=== PATIENT | male | born 1960 | race Caucasian/White ===

== ENCOUNTER 2019-01-03 10:53 | Inpatient (IN) ==
[2019-01-03 11:34] LABS: Basophils # (auto) 0.04 K/uL (0-0.2); Basophils % (auto) 0.8 %; Eosinophils # (auto) 0.09 K/uL (0-0.5); Eosinophils % (auto) 1.7 %; Hematocrit (blood only) 38.7 % (42-52); Hemoglobin 13.1 g/dL (14.0-18.0); Lymphocytes # (auto) 1.63 K/uL (1.2-3.4); Lymphocytes % (auto) 31.3 %; Mean Corpuscular Hemoglobin 30.5 pg (25-34); Mean Corpuscular Hgb Conc 33.9 g/dL (32-36); Mean Corpuscular Volume 90.2 fL (80-100); Mean Platelet Volume 10.5 fL (7.4-10.4); Monocytes # (auto) 0.51 K/uL (0.11-0.59); Monocytes % (auto) 9.8 %; Neutrophils # (auto) 2.94 K/uL (1.4-6.5); Neutrophils % (auto) 56.4 %; Platelet Count 266 K/uL (130-400); RDW Coefficient of Variation 13.4 % (11.5-14.5); Red Blood Count 4.29 M/uL (4.7-6.1); White Blood Count 5.21 K/uL (4.8-10.8)
[2019-01-03 11:56] LABS: Alanine Aminotransferase 20 U/L (12-78); Albumin Level 3.9 gm/dl (3.4-5.0); Aspartate Aminotransferase 11 U/L (15-37); BUN Creatinine Ratio 25.8 (10-20); Blood Urea Nitrogen 18 mg/dl (7-18); Calcium 8.5 mg/dl (8.5-10.1); Carbon Dioxide 26 mmol/L (21-32); Chloride 110 mmol/L (98-107); Est GFR (African American) 122.9; Glucose 108 mg/dl (70-99); Potassium 3.8 mmol/L (3.5-5.1); Sodium 140 mmol/L (136-145)
[2019-01-03 12:00] LABS: Acetaminophen < 2 ug/ml (10-30); Salicylate 2.7 mg/dl (2.8-20)
[2019-01-03 12:06] LABS: Albumin Globulin Ratio 1.3 (0.9-2); Alkaline Phosphatase 76 U/L (45-117); Bilirubin,Total 0.5 mg/dl (0.2-1); Total Protein 6.9 gm/dl (6.4-8.2)
[2019-01-03] MEDS ORDERED: IOVERSOL 100ml IV PRN (12:37)
[2019-01-03 12:42] LABS: Appearance Urine Clear (Clear); Bilirubin Urine Negative (Negative); Blood Urine Negative (Negative); Color Urine Yellow; Glucose Urine UA Negative (Negative); Ketones Urine Negative (Negative); Leukocyte Esterase Urine Negative (Negative); Nitrite Urine Negative (Negative); Protein Urine Negative (Negative); Urobilinogen Urine Negative (Negative); pH Urine 7.5 (4.5-7.5)
[2019-01-03 12:43] LABS: Sulfosalicylic Acid Urine Negative (Negative)
--- NOTE | 2019-01-03 12:47 | CT Scan Report ---
CT abd pelvis IV con only CT DOSE: 260.60 mGy.cm HISTORY: Weight loss abd pain, weight loss TECHNIQUE: Multiaxial CT images of the abdomen and pelvis were performed following the use of intrave nous contrast. A dose lowering technique was utilized adhering to the principles of ALARA. COMPARISON STUDY: 10/09/2008 FINDINGS: The lung bases are clear. The liver, spleen, gallbladder, pancreas, kidneys, and adrenal gl ands are within normal limits. No bowel wall thickening or obstruction. The pelvic organs are unremar kable. No suspicious lytic or blastic osseous lesions. IMPRESSION: No significant abnormality identified within the abdomen or pelvis. The above report was generated using voice recognition software. It may contain grammatical, syntax or spelling errors. Electronically signed by: Lai Chiu M.D. 01/03/2019 12:45 PM
[2019-01-03 13:09] LABS: Amphetamines+Metham, Urine Neg (Neg); Barbiturates, Urine Neg (Neg); Benzodiazepine, Urine Neg (Neg); Cocaine, Urine Neg (Neg); MDMA (Ecstacy), Urine Neg (Neg); Methadone, Urine Neg (Neg); Opiate, Urine Neg (Neg); Phencyclidine, Urine Neg (Neg)
[2019-01-03] MEDS ORDERED: PANTOprazole 40 MG TAB PO STA (13:34)
[2019-01-03] MEDS ORDERED: risperiDONE 1 MG TABLET PO STA (14:57)
--- NOTE | 2019-01-03 15:03 | Emergency Department Note ---
Entered by Rachell Garay acting as a scribe for Hemalatha Courtney MD History of Present Illness General Chief complaint: Mental Health Evaluation Source: patient and other (psych showcase maker) History of Present Illness Onset (ago): day(s) (yesterday) Location: head Pain Consistency: + other (episode) Maximum Pain Intensity: 6 Quality: + other (mental health) Exacerbated By: not by eating Associated symptoms: + other (SI, HI, abdominal pain, weight loss, irregular bowel movements); no nausea/vomiting (vomiting) The patient is a 58 year old male who presents to the Emergency Room for a mental health evaluation. Per the psych showcase maker, the patient called the police yesterday saying he was going to harm himself and others in some way. She states that today he went to a [employer] store and became irate because he felt that they owed him money, but they would not give him money. She reports that at this time the patient stormed out saying he was going home to get a machine gun to come back. She reports that after the incident the police were speaking with him on the phone and he just screamed the entire time. She states that he kept telling police my insides are bleeding and are in so much pain I want to . The psych showcase maker states that he was also telling police he was going to go drive his car on [address] and up onto the sidewalk to take out as many people as he could. She states that he was making statements of specifically killing Americans and that he wanted to end his life. The psych showcase maker states that when police arrived at his house he was screaming he didnt want to live and that they should shoot him. She reports that once he calmed down he told police that he had thought about killing himself last night to the point of hanging a rope over the rafter and holding it in his hand. She notes that on the way to the hospital he made note that he went to [facility] yesterday and bought black powder to build a bomb with. She states that he also told them he had every intention to kill himself. The patient states that 6 months ago he started noticing abdominal cramping across the center of his abdomen. He states that as time has gone on, it has gotten worse. He notes that the pain is like a pressure and bloating, similar to gas pains, but is always there. He reports that along with it he has noticed irregular bowel movements. He states that sometimes he has dark blood in his bowel movements, sometimes he has bright red blood in bowel movements, and other times he feels like he still needs to move his bowels right after moving them. The patient states that yesterday the pain was the worst it has ever been. He states that it was intolerable and almost came to the ED. He notes that by this morning it was back to the normal uncomfortable pressure again. He reports that along with the abdominal pain, he has lost 40 lbs. He notes that he has been eating, but he still has lost weight. The patient states that the pain was so bad that he did want to yesterday. He notes that he doesnt know what he said yesterday or today and doesnt remember, but doesnt say those things often. The patient notes that he is kicked out of placed frequently because he is supposedly rude and abrasive. He notes that he has been kicked out of the [employer], [employer], the coffee shop in [place], and [facility] [place]. The patient states that [facility] because after his first meeting with his new psychiatrist, he went for a follow up and was met with armed police who told him he was not welcome back at the facility. He reports that he was upset because he felt that their first session went well. He notes that he opened up to her and told her things he has told no one else. The patient states that since then he hasnt been able to see his PCP or her, her psychiatrist, there. He states that now he has to go to [place] for his appointments and has to check in with the police before going. He reports that notes that this is the reason he has not had his abdomen checked out yet. The patient notes that he "doesnt care" if he goes to [address] [place] [address]. He states that while there he "feels safe and doesnt feel like (his) life is in danger." He notes that he also likes it because he feels like he "has someone to talk to." The patient denies vomiting and abdominal pain after eating. Home Medications Home Medications Medication Instructions Recorded Confirmed Type No Known Home Medications 01/03/19 01/03/19 History Allergies Allergy/AdvReac Type Severity Reaction Status Date / Time bee venom protein (honey bee) Allergy Severe Anaphylaxis Verified 01/03/19 11:51 Past Med/Surg History Medical History Drug abuse Alcohol abuse Suicidal ideation Anxiety (Acute) Bipolar depression manic phase (Acute) Bipolar disorder (Acute) Mixed bipolar I disorder (Acute 10/25/10) Abdominal pain Cervical stenosis of spine Knee pain, bilateral Surgical History No pertinent past surgical history History of appendectomy Family History Father Cervical stenosis of spine Family/Other Diabetes Other No pertinent family history Social History Preferred Language: Macedonian Communication Ability: Effective Visual Impairment: No Limitations Hearing Ability: Normal Segment Assembler Required: No Beliefs That Will Affect Care: None Feels Safe at Home: Declines to Answer Smoking Status: Current every day smoker Tobacco Type: cigarettes ; Hx Alcohol Use: Yes Hx Substance Use: Yes Review of Systems See HPI for pertinent positives & negatives. and A total of 10 systems reviewed and were otherwise negative Physical Exam Vital Signs Vital Signs - 24 hr 01/03/19 10:58 01/03/19 12:47 Temperature 36.8 C Temperature Source Oral Sepsis Recent Fever Within 48 Hours No Sepsis New/Unexplained Change in Mental Status No Sepsis Action Taken by Nursing No Action Required Pulse Rate 74 Pulse Rate [Apical] 66 Respiratory Rate 22 16 Respiratory Effort / Characteristics Non-Labored Non-Labored Respiratory Depth Normal Normal Respiratory Pattern Regular Blood Pressure 123/71 Blood Pressure [Right Arm] 124/77 Blood Pressure Mean 88 Blood Pressure Mean [Right Arm] 92 Blood Pressure Position Sitting Blood Pressure Position [Right Arm] Standing Pulse Oximetry 100 100 Oxygen Delivery Method Room Air Room Air Vital signs reviewed. General: Well-appearing, agitated, in no significant distress. HEENT: No scleral icterus, PERRLA, neck supple. Atraumatic. Cardiovascular: Regular rate and rhythm, no extra sounds. Pulmonary: Clear to auscultation bilaterally, normal work of breathing. Abdomen: Soft, thin, nontender, nondistended, positive bowel sounds. Musculoskeletal: Atraumatic, no peripheral edema. Neurologic: Patient awake alert and oriented x 3 Skin: Warm, dry, no rash Psych: Pressure speech. Positive SI and HI. Course 1152: Past medical records reviewed. The patient was evaluated in room A8. A complete history and physical exam was performed. 1341: The patient was medically cleared at this time. 1458: I signed the patient's 302 at this time. 1644: The patient was accepted to [address] [place] [address] at this time. Administered Medications Folic Acid (Folvite) 1 mg PO QAM [facility] Stop: 02/03/19 08:59 Last Admin: 01/06/19 09:25 Dose: 1 mg Documented by: [id number] Admin: 01/05/19 08:26 Dose: 1 mg Documented by: [id number] Admin: 01/04/19 08:11 Dose: 1 mg Documented by: [id number] Hydroxyzine HCl (Vistaril) 50 mg PO HSZ PRN PRN Reason: Insomnia Stop: 02/02/19 16:55 Last Admin: 01/06/19 00:05 Dose: 50 mg Documented by: [id number] Ioversol (Optiray 320 100ml) 94 ml IV ONCE PRN PRN Reason: Interaction Checking Stop: 01/07/19 12:36 Last Admin: 01/03/19 12:37 Dose: 94 ml Documented by: [id number] Miscellaneous (Remove Nicoderm Patch) 1 ea N/A HS [facility] Stop: 02/03/19 00:00 Last Admin: 01/05/19 21:27 Dose: Not Given Documented by: [id number] Admin: 01/04/19 21:24 Dose: Not Given Documented by: [id number] Admin: 01/04/19 00:15 Dose: Not Given Documented by: [id number] Nicotine ([facility]oderm Cq) [facility] Stop: 02/02/19 18:14 Last Admin: 01/06/19 09:26 Dose: Not Given Documented by: [id number] Admin: 01/05/19 08:34 Dose: Not Given Documented by: [id number] Admin: 01/04/19 08:12 Dose: Not Given Documented by: [id number] Admin: 01/03/19 20:02 Dose: Not Given Documented by: [id number] Risperidone (Risperdal M) 1 mg PO BID@0900,1400 [facility] Stop: 02/05/19 10:14 Last Admin: 01/06/19 10:26 Dose: Not Given Documented by: [id number] Thiamine HCl (Vitamin B-1) 100 mg PO QAM [facility] Stop: 02/03/19 08:59 Last Admin: 01/06/19 09:25 Dose: 100 mg Documented by: [id number] Admin: 01/05/19 08:27 Dose: 100 mg Documented by: [id number] Admin: 01/04/19 08:12 Dose: 100 mg Documented by: [id number] Discontinued Medications Influenza Virus Vaccine Quadrival (Flucelvax Quad Vaccine) 0.5 ml IM .ONCE ONE Stop: 01/04/19 07:46 Last Admin: 01/04/19 18:53 Dose: 0.5 ml Documented by: [id number] Pantoprazole Sodium (Protonix) 40 mg PO NOW STA Stop: 01/03/19 13:35 Last Admin: 01/03/19 13:58 Dose: 40 mg Documented by: [id number] Risperidone (Risperdal) 1 mg PO NOW STA Stop: 01/03/19 14:58 Last Admin: 01/03/19 15:20 Dose: 1 mg Documented by: [id number] Risperidone (Risperdal M) 1 mg PO NOW STA Stop: 01/03/19 17:03 Last Admin: 01/03/19 17:36 Dose: 1 mg Documented by: [id number] Risperidone (Risperdal M) 1 mg PO BID [facility] Stop: 02/03/19 08:59 Last Admin: 01/04/19 08:12 Dose: 1 mg Documented by: [id number] Risperidone (Risperdal M) 1 mg PO TID [facility] Stop: 02/03/19 13:59 Last Admin: 01/06/19 09:25 Dose: 1 mg Documented by: [id number] Admin: 01/05/19 21:24 Dose: 1 mg Documented by: [id number] Admin: 01/05/19 13:48 Dose: 1 mg Documented by: [id number] Admin: 01/05/19 08:27 Dose: 1 mg Documented by: [id number] Admin: 01/04/19 21:22 Dose: 1 mg Documented by: [id number] Admin: 01/04/19 15:02 Dose: 1 mg Documented by: [id number] Medical Decision Making Differential Diagnosis Differential diagnoses considered include mood disorder, infection, hypoglycemia, electrolyte abnormalities, cardiac sources, intracerebral event, toxicologic, neurologic, as well as others. Medical Records Attestation: I reviewed the patient's medical records. Home Medications Current Medication List: was personally reviewed by me Laboratory Data Attestation: I reviewed the patient's lab results. Result diagrams: 01/03/19 11:21 01/03/19 11:21 Lab Results 01/03/19 01/03/19 01/03/19 Range/Units 11:21 11:21 11:21 WBC 5.21 (4.8-10.8) K/uL RBC 4.29 L (4.7-6.1) M/uL Hgb 13.1 L (14.0-18.0) g/dL Hct 38.7 L (42-52) % MCV 90.2 (80-100) fL MCH 30.5 (25-34) pg MCHC 33.9 (32-36) g/dL RDW Std Deviation 44.0 (36.4-46.3) fL RDW Coeff of Amira 13.4 (11.5-14.5) % Plt Count 266 (130-400) K/uL MPV 10.5 H (7.4-10.4) fL Immature Gran % (Auto) 0.0 % Neut % (Auto) 56.4 % Lymph % (Auto) 31.3 % Angelina % (Auto) 9.8 % Eos % (Auto) 1.7 % Baso % (Auto) 0.8 % Immature Gran # (Auto) 0.00 (0.00-0.02) K/uL Neut # (Auto) 2.94 (1.4-6.5) K/uL Lymph # (Auto) 1.63 (1.2-3.4) K/uL Angelina # (Auto) 0.51 (0.11-0.59) K/uL Eos # (Auto) 0.09 (0-0.5) K/uL Baso # (Auto) 0.04 (0-0.2) K/uL Sodium 140 (136-145) mmol/L Potassium 3.8 (3.5-5.1) mmol/L Chloride 110 H (98-107) mmol/L Carbon Dioxide 26 (21-32) mmol/L Anion Gap 4.0 (3-11) BUN 18 (7-18) mg/dl Creatinine 0.68 (0.6-1.4) mg/dl Est Cr Clr Drug Dosing Not Reportable Est GFR ( Amer) 122.9 Est GFR (Non-Af Amer) 106.0 BUN/Creatinine Ratio 25.8 H (10-20) Glucose 108 H (70-99) mg/dl Calcium 8.5 (8.5-10.1) mg/dl Total Bilirubin 0.5 (0.2-1) mg/dl AST 11 L (15-37) U/L ALT 20 (12-78) U/L Alkaline Phosphatase 76 (45-117) U/L Total Protein 6.9 (6.4-8.2) gm/dl Albumin 3.9 (3.4-5.0) gm/dl Globulin 3.0 (2.5-4.0) gm/dl Albumin/Globulin Ratio 1.3 (0.9-2) TSH 1.010 (0.300-4.500) uIu/ml Urine Color Urine Appearance (Clear) Urine pH (4.5-7.5) Ur Specific [place] (1.000-1.030) Urine Protein (Negative) Urine Glucose (UA) (Negative) Urine Ketones (Negative) Urine Blood (Negative) Urine Nitrite (Negative) Urine Bilirubin (Negative) Urine Urobilinogen (Negative) Ur Leukocyte Esterase (Negative) Salicylates 2.7 L (2.8-20) mg/dl Urine Opiates Screen (Neg) Ur Methadone, Qual (Neg) Acetaminophen < 2 L (10-30) ug/ml Urine Barbiturates (Neg) Ur Phencyclidine (PCP) (Neg) U Amphetamin/Meth Scrn (Neg) MDMA (Ecstasy) Screen (Neg) U Benzodiazepines Scrn (Neg) Ur Cocaine Metabolite (Neg) U Marijuana (THC) Screen (Neg) Ethyl Alcohol mg/dL (0-3) mg/dl 01/03/19 01/03/19 01/03/19 Range/Units 11:21 12:26 12:26 WBC (4.8-10.8) K/uL RBC (4.7-6.1) M/uL Hgb (14.0-18.0) g/dL Hct (42-52) % MCV (80-100) fL MCH (25-34) pg MCHC (32-36) g/dL RDW Std Deviation (36.4-46.3) fL RDW Coeff of Amira (11.5-14.5) % Plt Count (130-400) K/uL MPV (7.4-10.4) fL Immature Gran % (Auto) % Neut % (Auto) % Lymph % (Auto) % Angelina % (Auto) % Eos % (Auto) % Baso % (Auto) % Immature Gran # (Auto) (0.00-0.02) K/uL Neut # (Auto) (1.4-6.5) K/uL Lymph # (Auto) (1.2-3.4) K/uL Angelina # (Auto) (0.11-0.59) K/uL Eos # (Auto) (0-0.5) K/uL Baso # (Auto) (0-0.2) K/uL Sodium (136-145) mmol/L Potassium (3.5-5.1) mmol/L Chloride (98-107) mmol/L Carbon Dioxide (21-32) mmol/L Anion Gap (3-11) BUN (7-18) mg/dl Creatinine (0.6-1.4) mg/dl Est Cr Clr Drug Dosing Est GFR ( Amer) Est GFR (Non-Af Amer) BUN/Creatinine Ratio (10-20) Glucose (70-99) mg/dl Calcium (8.5-10.1) mg/dl Total Bilirubin (0.2-1) mg/dl AST (15-37) U/L ALT (12-78) U/L Alkaline Phosphatase (45-117) U/L Total Protein (6.4-8.2) gm/dl Albumin (3.4-5.0) gm/dl Globulin (2.5-4.0) gm/dl Albumin/Globulin Ratio (0.9-2) TSH (0.300-4.500) uIu/ml Urine Color Yellow Urine Appearance Clear (Clear) Urine pH 7.5 (4.5-7.5) Ur Specific [place] 1.010 (1.000-1.030) Urine Protein Negative (Negative) Urine Glucose (UA) Negative (Negative) Urine Ketones Negative (Negative) Urine Blood Negative (Negative) Urine Nitrite Negative (Negative) Urine Bilirubin Negative (Negative) Urine Urobilinogen Negative (Negative) Ur Leukocyte Esterase Negative (Negative) Salicylates (2.8-20) mg/dl Urine Opiates Screen Neg (Neg) Ur Methadone, Qual Neg (Neg) Acetaminophen (10-30) ug/ml Urine Barbiturates Neg (Neg) Ur Phencyclidine (PCP) Neg (Neg) U Amphetamin/Meth Scrn Neg (Neg) MDMA (Ecstasy) Screen Neg (Neg) U Benzodiazepines Scrn Neg (Neg) Ur Cocaine Metabolite Neg (Neg) U Marijuana (THC) Screen Pos H (Neg) Ethyl Alcohol mg/dL < 3.0 (0-3) mg/dl Imaging Data Radiologist's Impression: Radiology results as stated below per my review and the radiologist's interpretation: CT abd pelvis IV con only CT DOSE: 260.60 mGy.cm HISTORY: Weight loss abd pain, weight loss TECHNIQUE: Multiaxial CT images of the abdomen and pelvis were performed following the use of intravenous contrast. A dose lowering technique was utilized adhering to the principles of ALARA. COMPARISON STUDY: 10/09/2008 FINDINGS: The lung bases are clear. The liver, spleen, gallbladder, pancreas, kidneys, and adrenal glands are within normal limits. No bowel wall thickening or obstruction. The pelvic organs are unremarkable. No suspicious lytic or blastic osseous lesions. IMPRESSION: No significant abnormality identified within the abdomen or pelvis. The above report was generated using voice recognition software. It may contain grammatical, syntax or spelling errors. Electronically signed by: Lai Chiu M.D. 01/03/2019 12:45 PM Blood Pressure Blood Pressure Findings: Elevated blood pressure Blood Pressure Disposition: elevated BP felt to be situational MDM Narrative This pt was evaluated and appeared to be in no distress. Pt was medically ev aluated, CT scan of the abdomen and pelvis is negative for scute process. Lab work is reassuring. UA is negative. Pt was evaluated by the showcase maker. He was referred to [facility] and accepted on a 302. Impression & Plan Verbalizes suicidal thoughts, Homicidal behavior Discharge Plan Visit Data *Final* Discharge Date/Time: 01/03/19 16:33 Chief Complaint: Mental Health Evaluation ED Provider: Hemalatha Courtney Discharge Problem: Verbalizes suicidal thoughts, Homicidal behavior Patient Disposition: Admitted As Inpatient Discharge Instructions Interventions: ED Discharge Assessment Last Done: 01/03/19 16:33 The scribe's documentation has been prepared under my direction and personally reviewed by me in its entirety. I confirm that the note above accurately reflects all work, treatment, procedures, and medical decision making performed by me.
[2019-01-03] MEDS ORDERED: SODIUM CHLORIDE 0.65% NA SOLN 45 ML (OCEAN) PRN (16:56)
[2019-01-03] MEDS ORDERED: BISMUTH SUBSALICYLATE PER ML OMNICELL CHARGE PO PRN (16:56)
[2019-01-03] MEDS ORDERED: ACETAMINOPHEN 325 MG TAB PO PRN (16:56)
[2019-01-03] MEDS ORDERED: ALUMINUM/MAGNESIUM SUSP 30 ML UDC PO PRN (16:56)
[2019-01-03] MEDS ORDERED: LORazepam 1 MG TAB PO PRN ×2 (16:56)
[2019-01-03] MEDS ORDERED: RISPERIDONE ODT 1MG PO STA (17:02)
[2019-01-03] MEDS ORDERED: RISPERIDONE ODT 1MG PO PRN (17:03)
[2019-01-03] MEDS ORDERED: NICOTINE POLACRILEX 2 MG GUM MT PRN (18:14)
[2019-01-03] MEDS: NICOTINE 14 MG/24 HR PATCH TD SCH (20:02)
[2019-01-04] MEDS ORDERED: INFLUENZA VIRUS QUAD VACCINE 0.5 ML SYR IM ONE (07:45)
[2019-01-04] MEDS ORDERED: INFLUENZA ADMINISTRATION CHARGE ONE (07:45)
[2019-01-04] MEDS: FOLIC ACID 1 MG TAB PO SCH (08:11)
[2019-01-04] MEDS: NICOTINE 14 MG/24 HR PATCH TD SCH (08:12)
[2019-01-04] MEDS: THIAMINE HCL 100 MG TAB PO SCH (08:12)
[2019-01-04] MEDS ORDERED: RISPERIDONE ODT 1MG PO SCH ×2 (09:00→21:00)
--- NOTE | 2019-01-04 13:27 | History & Physical ---
Date of Service January 04, 2019 Impression / Recommendations Impression The patient is a58yo partnered male wtih h/o BPAD I who is prsently demonstrating symptoms of tammie. It may be worsened due to lack of mood stablization medications in > 1 year and further worsened by THC in medical MJ. He is making disinhibited statements of harm to self and others and inpatient admission is the most appropriate setting for care at this time. He is on 302 status expires on 01/08/19. (1) Verbalizes suicidal thoughts: - he verbalizes suidical and homocidal thoughts with provocative disinhibited statements inpatinet care is least restrictive and most appropriat setting for care at this time, treatment of bipolar tammie is mainstay of reducing risk, will need to assure he dose not have access to weapons, no specific target for HI named so no duty to warn but continue inpatient for duty to protect others (2) Bipolar depression manic phase: - Medically necessary private room due to intrusivness and in appropriateness and possible disinhibition and threats - risperdal today will move it up to 3mg by dividing it tid (consider GALLAGHER such as sustenna or trinza for compliance), metabolic studies in 1-2 days when patient can tolerate (ordered for 01/05/19) - prn risperdal 1mg po bid available prn severe agitation NTE 4mg in a day. 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 of psychosis - need to contact Dr Moreno's office to alert him of this contraindication to ongoing use, concern is patient may then use illicitly, when his insight improves will discuss this further (4) Abdominal pain: - appreciate evaluation by ER in due diligence, abdominal CT no change from 09/2018 comparison and no obvious visual findings - asked him to show staff any BM that has blood to assure acute GI consult is not needed - if not any acute symptoms on unit will need to arrange outpatient appt with [place] [facility] and ask for partner's assistance coordinating police involvement to reduce barriers to furthe evaluation and care - he has intact apeptite now and is eating, perhaps risperdal will stimulate appetite some but this is not the goal of treatment Inventory Assets Strengths: willing to take medications redirectable by staff Needs: medication aftercare safety to self and others in a locked unit Risk Factors Assessment Male: Yes : Yes Do You Have Access To A Gun?: Yes (per prior records gun in home locked up, will n eed to clarify with ) Health Problems: Yes Mental Health Diagnoses: Yes Substance Use Disorders: Yes Previous Psychiatric Hospitalization: Yes Smoker: Yes Protective Factors Assessment : Yes Responsible for Young Children: No Employed: No (Disabled) Psychiatric History Identifying Data JULY SINGH is a 58-year-old M who currently lives in with his common- law Andreea in [facility], who has a history of bipolar I disorder and MJ abuse was admitted on 01/03/19 at 16:46 on a 302 involuntary committment for making multiple threats to harm himself and others to multiple people in multiple locations over the previous 48hours. Chief Complaint "I am just wanting others to stop threatening me". History of Present Illness The aptient is a 58yo male with a known history of bipolar I disorder and MJ abuse who has made multiple verbal threats to himself and others in a disinhibited fashion over the 2 days preceding admission. He was noted in the 302 petition completed on 01/03/19 by officer Laura to have called [facility] on 01/02 noting he was going to hang himself with a rope. THen on he was at [facility] and became irate when leaving the store he stated he was going to get a machine gun. When the police received a phone call from the patient he was screaming at police on the phone not able to engage in two way conversation, he was screaming "my insides are bleeding and in so much pain he wanted to " He then stated he was in his vehicle and wanted to drive on [address] and run his veihicle onto the sidewalk and take out aas many people as he could....kill niggers" and how they hav ruined their life. Then physical contac was made with the individual at his home and he was irrate stating he did not want to live and suggested the officer shoot him, and stated the prior night 01/02 he had hte rope over the rafter and his hand on it seriously contemplating killing himself. He later said to police he had every intention of killing himself due to the pain in his stomach. Additionally per ER Automotive Service Director and ED MD notes the hay also had been at [facility] on 01/02/19 attempting to buy black powder to make a bomb, he was asked to leave, and a statement was filed with police by the store operations associate. IN the ED the hay was described as manic, paranoid, diosrganized tangential, talking about the above events, additionally stating he was worried someone was raping his puppy who is named Sebastian Castro. Nursing on the [facility] concur that the patient has been hypervervbal with poor sleep and increased energy despite limited sleep, he is verbally intrusive and the content of what he says is derogatory and provocative generally with themes of threat or harm to others. WIth this provider he remains distractible, hyperverbal telling long circumferential stories and dislikes being interrupted but will answer questions, he is sharing about many times he has been wronged by others and that is the basis for his paranoia, to include claiming that he lost his wallet earlier this week and went back to the business to get it was told someone else claimed the wallet he described and "they are using my cards,... yes, I decti vated them, but they reactivated them" "no I have not called the police they never do anything." He then shares a littany of past offenses where a neighbor was mad at him and called [facility] and the police and others making all sorts of allegations, how drug dealers have messed with him. 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 He is grandiose feeling he knows many things such as bomb making and reconaissance. When we reveiwed the option of return to risperdal that was previously stablizi ng and tolerated at his 2014 [facility] admission, he tells this provider "I trust you are a great doctor and I will do whatever you ask me to do." He denies SE from last evening's 1mg x2 doses (one in ED, and one upon arrival to the unit). He understands he is here on 302 status, and states "this has happened to me at least 8-10 times." IN the ED History was taken about abdominal pain for 6mon cramping with irregular bowel movements at times with dark and sometimes bright red blood. Reporting 40lb weight loss despite eating. He reported he had been thrown out of many local establishments for being rude and abrasive to include the [employer], [employer] and the [employer]. He "told the psychiatrist what I really wanted to do" at his [facility] visit [facility] and then next visit was met by armed police and told he was not longer welcome there and that he needed to be seen at the [facility] and coordinate his visits with police. He stated to this provider today that he was to go to GI visit this past week but he lost his wallet and so then could not go to the visit. "they told me my CT was negative here int he ER,.....people keep telling me I need a colonoscopy. " He has some pain today but no kayley blood in stool. He states it is in his lower abdomen and alteranting diarrhea and constipation, "I am hungry now and they did not give me enough food....seems okay today" When asked about prior depression he states that he has had it, but cannot clarify more as he returns to talking about his sense of persecution and not wanting to live as a result. On ROS: - he is hard to ask questions of as he admits to "Trauma" and cites many events of persecution it is unclear if this is reality or due to his current state of mind. - he denies feeling anxious at this time - he denies alcohol use, does overuse caffiene 3-5cups/day, and uses "Medical MJ....yes I am not stupid I know it can cause marijuana psychosis... but Dr Colbert says I have 3 of the conditions that are listed for use in Medical MJ" he mainly likes to use the "salve" but cannot name products, he denies other illicit substance use, no other OTC or supplements - other than abdominal pain he admits to flat feet with pain with walking has never seen swimming pool installer and servicer does not use any particular orthotic causing him to have an antalgic gait - he denies other physical sx on 10 system ROS. Past Psychiatric History Previous Psych History: - no active treatment, was asked not to return to [facility] in [place] and has not been to [facility] due to hassel of coordinating with their police as he was asked with visits - no psychotropic medication in > 1 year, he does not recall why or when he stopped taking medications - he does not recall names of medications, from prior hospital record medications include but are not limited to: Risperdal 1mgAM/2mghs stablizing 2013, prior to taht [facility], Trileptal, klonopin - multiple admissions many of which are apparently involuntary, this is at least his >4th admission to [facility] (08/2009, 10/2010, 01/2014, and now), and reports h/o [facility], and [facility] in [facility] (first dx with BPAD and discharged medically from [facility], service connected for this) - he reports many suicidal ideastions but does not give a clear answer to attempts blurring the discussion of many vivid ideations but not able to stay on topic long enough to state if he has acted Substance use history: Jesus denies current alcohol use, but records states history of heave use remotely, frequent MJ use, and overuse of caffiene, he denies other substance of abuse and UDS negative other than MJ, but record sites drug abuse as a problem Current Psychiatric Diagnosis: bipolar d/o Do You Have Access To A Gun?: Yes (per prior records gun in home locked up, will n eed to clarify with ) Past Head Trauma/Neuro History unknown, patient states "I don't think so" Allergies Allergy/AdvReac Type Severity Reaction Status Date / Time bee venom protein (honey bee) Allergy Severe Anaphylaxis Verified 01/03/19 11:51 Home Medications Home Medications Medication Instructions Recorded Confirmed Type No Known Home Medications 01/03/19 01/03/19 History Family History Family History of: Doesn't Know Alcohol History Hx of Alcohol Use Over the Past 12 Months: No Smoking Use Have You Smoked or Used Tobacco Products in the Last 30 Days: Yes tobacco type: cigarettes Smoking Status: Current every day smoker Smoking packs per day: 1.5 Substance History Hx of Prescription Med Misuse Over the Past 12 Months: No Hx of Over the Counter Med Misuse Over the Past 12 Months: No Hx of Inhalent Misuse Over the Past 12 Months: No Hx of Organic Substance Use Over the Past 12 Months: Yes (Marijuana - "I don't know...I have a card" , Dr Moreno is certifying ) Hx of Illegal Substances/Street Drug Use Over Past 12 Months: No Problems as a Result of Past Substance Use Comments: denies Personal History Living Arrangements: Home (with common law Andreea, and their adult son) Highest Grade Completed: High School Graduate 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 Other Number Of Children: 1 Beliefs That Will Affect Care: None Legal Problems Comment: Past charge of disorderly conduct, Pt unsure of year. However, also reports it was a medical discharge. Psychological Trauma History Comment: he says yest to "trauma" but the discussion becomes diffuse in some paranoid events hard to discern reality at this time Patient History Medical History Drug abuse Alcohol abuse Suicidal ideation Anxiety (Acute) Bipolar depression manic phase (Acute) Bipolar disorder (Acute) Mixed bipolar I disorder (Acute 10/25/10) Abdominal pain Cervical stenosis of spine Knee pain, bilateral Surgical History No pertinent past surgical history History of appendectomy Family History Father Cervical stenosis of spine Family/Other Diabetes Other No pertinent family history Social History Preferred Language: Malagasy Communication Ability: Effective Visual Impairment: No Limitations Hearing Ability: Normal Pre Billing Specialist Required: No Beliefs That Will Affect Care: None Feels Safe at Home: Declines to Answer Smoking Status: Current every day smoker Tobacco Type: cigarettes ; Hx Alcohol Use: Yes Hx Substance Use: Yes Review of Systems Review of Systems: see HPI for Medical ROS Also ROS cited in Dr Courtney's Note 01/03/19 Physical Exam Mental Examination: Dr Courtney's Physical Exam reviewed from ED 01/03/19 and accepted for the purposes of this H&P Appearance: Disheveled Eye Contact: Maintains Eye Contact Motor Behavior: Hyperactive Speech: Excessive, Pressured, Loud and Circumstantial Mood: Expansive and Elevated Affect: Inappropriate (not euphoric but grandiose and energized wtih hostile perception of others intentions and provocative externalizing statements towards others) Thought Process: Perseveration, Racing and Tangential Thought Content: Perseveration (on not wanting to live in this world of others who take advantage of him with stated SI, and stated HI thoughts) Insight: Poor Judgement: Poor Vital Signs (Past 24 Hours): Last Vital Signs Temp 36.6 C 01/04/19 08:03 Pulse 72 01/04/19 08:03 Resp 20 01/04/19 04:51 BP 125/44 L 01/04/19 08:03 Pulse Ox 98 01/04/19 04:53 Results & Data Laboratory Results Laboratory Results - last 24 hr 01/03/19 01/03/19 01/03/19 12:26 12:26 12:26 Folate Urine Color Yellow Urine Appearance Clear Urine pH 7.5 Ur Specific Zortman 1.010 Urine Protein Negative Urine Glucose (UA) Negative Urine Ketones Negative Urine Blood Negative Urine Nitrite Negative Urine Bilirubin Negative Urine Urobilinogen Negative Ur Leukocyte Esterase Negative Urine Opiates Screen Neg Ur Methadone, Qual Neg Urine Barbiturates Neg Ur Phencyclidine (PCP) Neg U Amphetamin/Meth Scrn Neg MDMA (Ecstasy) Screen Neg U Benzodiazepines Scrn Neg Ur Cocaine Metabolite Neg U Marijuana (THC) Screen Pos H U Marijuana THC Carboxy Pending 01/04/19 07:59 Folate 15.20 Urine Color Urine Appearance Urine pH Ur Specific Zortman Urine Protein Urine Glucose (UA) Urine Ketones Urine Blood Urine Nitrite Urine Bilirubin Urine Urobilinogen Ur Leukocyte Esterase Urine Opiates Screen Ur Methadone, Qual Urine Barbiturates Ur Phencyclidine (PCP) U Amphetamin/Meth Scrn MDMA (Ecstasy) Screen U Benzodiazepines Scrn Ur Cocaine Metabolite U Marijuana (THC) Screen U Marijuana THC Carboxy Current Inpatient Medications Current Inpatient Medications: Current Inpatient Medications Acetaminophen (Tylenol) 650 mg PO Q4H PRN PRN Reason: Headache or Minor Fever Stop: 02/02/19 16:55 Al Hydrox/Mg Hydrox/Simethicone (Maalox) 30 ml PO Q4H PRN PRN Reason: GI Upset Stop: 02/02/19 16:55 Bismuth Subsalicylate (Kaopectate) 15 ml PO PRN PRN PRN Reason: Loose Stool Stop: 02/02/19 16:55 Folic Acid (Folvite) 1 mg PO QAM TAMICA Stop: 02/03/19 08:59 Last Admin: 01/04/19 08:11 Dose: 1 mg Documented by: Hydroxyzine HCl (Vistaril) 25 mg PO Q4H PRN PRN Reason: Anxiety Stop: 02/02/19 16:55 Hydroxyzine HCl (Vistaril) 50 mg PO HSZ PRN PRN Reason: Insomnia Stop: 02/02/19 16:55 Ioversol (Optiray 320 100ml) 94 ml IV ONCE PRN PRN Reason: Interaction Checking Stop: 01/07/19 12:36 Last Admin: 01/03/19 12:37 Dose: 94 ml Documented by: Lorazepam (Ativan) 1 mg PO ONE PRN; Protocol PRN Reason: EtoH Withdrawal AWSS 6-10 Lorazepam (Ativan) 1 - 3 mg PO UD PRN; Protocol PRN Reason: EtoH Withdrawal AWSS 6-10+ Stop: 02/02/19 16:55 Magnesium Hydroxide (Milk Of Magnesia) 30 ml PO DAILY PRN PRN Reason: Constipation Stop: 02/02/19 16:55 Miscellaneous (Remove Nicoderm Patch) 1 ea N/A HS TAMICA Stop: 02/03/19 00:00 Last Admin: 01/04/19 00:15 Dose: Not Given Documented by: Nicotine (Nicoderm Cq) 14 mg TD QAM TAMICA Stop: 02/02/19 18:14 Last Admin: 01/04/19 08:12 Dose: Not Given Documented by: Nicotine Polacrilex (Nicorette 2mg) 1 piece MT PRN PRN PRN Reason: Nicotine Withdrawal Stop: 02/02/19 18:13 Risperidone (Risperdal M) 1 mg PO BID PRN PRN Reason: psychosis, or agitation Stop: 02/02/19 17:02 Risperidone (Risperdal M) 1 mg PO BID TAMICA Stop: 02/03/19 08:59 Last Admin: 01/04/19 08:12 Dose: 1 mg Documented by: Sodium Chloride (Rhea Nasal) 1 - 2 sprays NA PRN PRN PRN Reason: Nasal Dryness/Congestion Stop: 02/02/19 16:55 Thiamine HCl (Vitamin B-1) 100 mg PO QAM [facility] Stop: 02/03/19 08:59 Last Admin: 01/04/19 08:12 Dose: 100 mg Documented by: CPT Code CPT Code Initial Hospital Care: 18690
[2019-01-04] MEDS: RISPERIDONE ODT 1MG PO SCH ×2 (15:02→21:22)
[2019-01-05] MEDS: FOLIC ACID 1 MG TAB PO SCH (08:26)
[2019-01-05] MEDS: RISPERIDONE ODT 1MG PO SCH ×3 (08:27→21:24)
[2019-01-05] MEDS: THIAMINE HCL 100 MG TAB PO SCH (08:27)
[2019-01-05] MEDS: NICOTINE 14 MG/24 HR PATCH TD SCH (08:34)
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
[2019-01-06 07:54] LABS: Glucose Fasting 100 mg/dl (70-99)
[2019-01-06 07:57] LABS: Cholesterol 140 mg/dl (0-200)
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
[2019-01-06] MEDS: THIAMINE HCL 100 MG TAB PO SCH (09:25)
[2019-01-06] MEDS: RISPERIDONE ODT 1MG PO SCH ×4 (09:25→21:13)
[2019-01-06] MEDS: FOLIC ACID 1 MG TAB PO SCH (09:25)
[2019-01-06] MEDS: NICOTINE 14 MG/24 HR PATCH TD SCH (09:26)
[2019-01-06] MEDS ORDERED: haloperidoL 5 MG TAB PO PRN (10:05)
[2019-01-07] MEDS: MAGNESIUM HYDROXIDE SUSP 30 ML UDC PO PRN (04:36)
[2019-01-07] MEDS: RISPERIDONE ODT 1MG PO SCH ×3 (08:46→21:03)
[2019-01-07] MEDS: FOLIC ACID 1 MG TAB PO SCH (08:46)
[2019-01-07] MEDS: THIAMINE HCL 100 MG TAB PO SCH (08:47)
[2019-01-07] MEDS: NICOTINE 14 MG/24 HR PATCH TD SCH (08:48)
--- NOTE | 2019-01-07 09:41 | Psychiatric Progress Note ---
Date of Service January 07, 2019 Impression / Recommendations Impression 58yo partnered male with BPAD I who is admitted involuntarily with tammie. He has been nonadherent with outpatient treatment and off mood stabilizing medications for> 1 year, and further worsened by THC (states he has medical MJ). He was behaving in an erratic and unsafe manner, driving over 130 miles an hour, threatening staff at the [employer] store, threatened to drive his car on the sidewalk and tried to kill as many people as he could, and drove to a sporting goods store and asked them to buy black powder and make a bomb. He also told the police he wanted to , had hung a rope over the rafters to hang himself with, and asked police to shoot him. He is on 303 as of today, as despite some improvement on risperidone, he remains manic, with poor behavioral control, is disinhibited, and unable to interact appropriately with others. Today he states willingness for the addition of Depakote. Additionally, although he is taking medication here, he has stated that he will not continue medication or follow-up as an outpatient after discharge. He demonstrates limited insight and judgment, and if discharged in his current state, would likely return to the dangerous and erratic behaviors he exhibited prior to admission. He has been able to tolerate some groups, but not yet ready for a roommate or a family meeting with his girlfriend whom he lives with. Inpatient treatment remains medically ne cessary as he remains at acute risk of harm to self and others should he be discharged prematurely. (1) Verbalizes suicidal thoughts: - he verbalizes suicidal and homicidal thoughts with provocative disinhibited statements inpatient care is least restrictive and most appropriate setting for care at this time, treatment of bipolar tammie is mainstay of reducing risk, will need to assure he dose not have access to weapons, no specific target for HI named so no duty to warn but continue inpatient for duty to protect others 01/05 - Now denying SI/HI, reporting knowledge of necessary statements to be released from treatment. Present on Admission?: Yes (2) Bipolar disorder: - Medically necessary private room due to intrusiveness and inappropriateness and possible disinhibition and threats - Risperdal today will move it up to 3mg by dividing it tid (consider GALLAGHER such as Sustenna or Trinza for compliance), metabolic studies in 1-2 days when patient can tolerate (ordered for 01/05/19) - prn Risperdal 1mg po bid available prn severe agitation NTE 4mg in a day. - milieu may be excused from groups if intrusive - collateral history from /GF - needs aftercare 01/05 - Continue risperidone 1mg TID as above, consider need for further titration based on response - Continue to excuse patient from group when demonstrating poor judgement or contributing inappropriately - Attempt to have a family meeting with social work and outpatient supports 01/06 - Increase risperidone to 1 mg every morning and midday and 2 mg at bedtime. Change as needed to haloperidol 5 mg every 4 hours as needed for tammie. Consider addition of Depakote if tammie does not improve. - Fasting glucose 100, cholesterol 140. - Continue private room due to poor behavioral control. - Scheduled 303 involuntary commitment hearing. Consider 304 involuntary outpatient commitment given history of nonadherence and statements that he does not plan to follow up with outpatient treatment. 01/07 - 303 granted. - Continue risperidone and add Depakote DR for mood stabilization, irrita bility, and anger. Patient has taken it before and does not recall any tolerability issues. Reviewed risks, benefits and side effects, start 500 mg twice daily. - [facility] he would benefit from outpatient psychiatric care, therapy, and case management. - Family meeting to include girlfriend, possibly brother and [id number]. Recommend they remove guns from the home prior to discharge, given patient's threats to others, disinhibition, history of poor compliance, substance use, and the fact that he has been involuntarily committed multiple times which makes it a legal for him to possess firearms. -Mandated report made to Angelo IBARRA regarding patient's bipolar disorder, cannabis use, and unsafe driving. Patient informed, questions answered, and provided with "what to expect in your condition has been reported to Angelo IBARRA" handout. 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 01/06 - Called [facility] and spoke with Dr. Almanzar regarding patient's hospitalization for severe tammie, and recommendations for abstinence from cannabis/THC. Present on Admission?: Yes (4) Abdominal pain: - appreciate evaluation by ER in due diligence, abdominal CT no change from 09/2018 comparison and no obvious visual findings - asked him to show staff any BM that has blood to assure acute GI consult is not needed - if not any acute symptoms on unit will need to arrange outpatient appt with [facility] and ask for partner's assistance coordinating police involvement to reduce barriers to further evaluation and care - he has intact appetite now and is eating, perhaps Risperdal will stimulate appetite some but this is not the goal of treatment 01/07 -patient eating well, reports resolution of abdominal pain. Recommend follow-up as scheduled with his ui programmer at the [facility]. Present on Admission?: Yes Inventory Assets Strengths: willing to take medications redirectable by staff Needs: medication aftercare safety to self and others in a locked unit Risk Factors Assessment Male: Yes : Yes Do You Have Access To A Gun?: Yes Health Problems: Yes Mental Health Diagnoses: Yes Substance Use Disorders: Yes Previous Attempt: Yes (Told police he hung a rope over the rafters with intent to hang himself the night prior to presentation) Previous Psychiatric Hospitalization: Yes Hopelessness: No Smoker: Yes Protective Factors Assessment Church Beliefs: No : No (Long-term girlfriend) Responsible for Young Children: No Employed: No (Disabled) Stable Relationships: No Supportive Family: No Good Rapport with Provider: No Interval History Identifying Information JULY SINGH is a 58-year-old M who currently lives in with his common- law Andreea in [facility], who has a history of bipolar I disorder and MJ abuse, and was admitted on 01/03/19 at 16:46 on a 302 involuntary commitment after making multiple threats to harm himself and others in multiple locations over the previous 48 hours. He has been noncompliant with outpatient treatment and not currently in treatment or on medication, and is on a 303 involuntary commitment as of 01/07/19. Chief Complaint "Well I've been having a good time, I've been working on my book". Review of Systems Notes Patient reports abdominal pain has resolved Sleep Information Total Hours of Sleep: 5.5 Sleep Comments: pt on q-15 minute checks Meal Information Percent Meal Consumed - Breakfast: 100 Percent Meal Consumed - Lunch: 100 Percent Meal Consumed - Dinner: 100 Subjective Subjective Patient was seen & assessed and interval progress reviewed with treatment team. Staff report he was able to tolerate some groups yesterday, but at times became more disinhibited and inappropriate, and had to be redirected. His sister in law called and reported concerns about his lack of outpatient follow up, and although social work has tried to call his significant other, she has not returned phone calls. He had a 303 hearing today and did not contest it, but testified at length about how various people had been "accosting me, threatening me, stealing my things," stated he believes he has bipolar disorder and has been unstable, and that he wanted outpatient treatment, but [facility], which he says "always happens when I'm manic." He denies threatening anyone in particular and says he "was just screaming at the maldonado, can't control my racing thoughts, gets me in trouble." His testimony was eventually terminated as it was irrelevant. On my assessment, he refers to his threatening statements and uncooperative behavior as "snippy, snarky statements, just garbage." He talks angrily about the people whom he believes stole his wallet, stating that they have caused him a lot of trouble. He denies current thoughts to harm anyone else, as well as thoughts of suicide. He reports improved sleep, although still suboptimal and not sleeping through the night. 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 He reports long- standing problems with anger outbursts, stating that he behaves badly and threatens others when he is angry, and wants to work on that, as he understands that his behavior could result in arrest, and does not want that to happen. He says he has "a wonderful life, a great family," and wants to be able to return to them. He does not think he has ever been in therapy before, but is willing to return. Reviewed previous medication trials, but he does not recall any problems with Depakote and is willing to resume it. Discussed the mandated report to LINDSAY IBARRA given his noncompliance with treatment, presentation in a manic state, self report that he was driving 130 mph, and threats to drive on the sidewalk and tried to kill people. He talked about his 3 vehicles and how much they are worth, stating he has a "brand-new 2019 truck that is all paid for, and a $30,000 sports car." He says he will be very upset if his license is revoked, because he cannot afford to take a taxi to his medical appointments. Physical Exam Psychiatric Orientation: alert and cooperative (Partially) Apperance: appropriately dressed Thin male appearing older than his stated age Eye Contact: + fair eye contact Motor Behavior: steady gait and station and + psychomotor agitation Speech: + pressured speech Excessive speech, loud at times Affect: + constricted affect (Expansive with an irritable edge) "Great." Thought Content: + cognitive distortions Suicidal Thoughts: denies suicidal thoughts Homicidal Thoughts: denies homicidal thoughts Hallucinations: no auditory hallucinations and no visual hallucinations Cognition: language grossly intact; + recent memory not intact and + attention not intact Insight: + impaired insight Judgement: + impaired judgement Vital Signs (Past 24 Hours) Last Vital Signs Temp 36.4 C L 01/07/19 06:44 Pulse 73 01/07/19 06:45 Resp 18 01/07/19 06:44 BP 103/64 01/07/19 06:45 Pulse Ox 97 01/06/19 20:53 Results & Data Laboratory Results Laboratory Results - last 24 hr 01/03/19 12:26 U Marijuana THC Carboxy 794 A Current Inpatient Medications Current Inpatient Medications: Current Inpatient Medications Acetaminophen (Tylenol) 650 mg PO Q4H PRN PRN Reason: Headache or Minor Fever Stop: 02/02/19 16:55 Al Hydrox/Mg Hydrox/Simethicone (Maalox) 30 ml PO Q4H PRN PRN Reason: GI Upset Stop: 02/02/19 16:55 Bismuth Subsalicylate (Kaopectate) 15 ml PO PRN PRN PRN Reason: Loose Stool Stop: 02/02/19 16:55 Folic Acid (Folvite) 1 mg PO QAM TAMICA Stop: 02/03/19 08:59 Last Admin: 01/07/19 08:46 Dose: 1 mg Documented by: Haloperidol (Haldol) 5 mg PO Q4H PRN PRN Reason: tammie/psychosis Stop: 02/05/19 10:04 Hydroxyzine HCl (Vistaril) 25 mg PO Q4H PRN PRN Reason: Anxiety Stop: 02/02/19 16:55 Hydroxyzine HCl (Vistaril) 50 mg PO HSZ PRN PRN Reason: Insomnia Stop: 02/02/19 16:55 Last Admin: 01/06/19 00:05 Dose: 50 mg Documented by: Ioversol (Optiray 320 100ml) 94 ml IV ONCE PRN PRN Reason: Interaction Checking Stop: 01/07/19 12:36 Last Admin: 01/03/19 12:37 Dose: 94 ml Documented by: Magnesium Hydroxide (Milk Of Magnesia) 30 ml PO DAILY PRN PRN Reason: Constipation Stop: 02/02/19 16:55 Last Admin: 01/07/19 04:36 Dose: 30 ml Documented by: Miscellaneous (Remove Nicoderm Patch) 1 ea N/A HS [facility] Stop: 02/03/19 00:00 Last Admin: 01/06/19 21:13 Dose: Not Given Documented by: Nicotine (Nicoderm Cq) 14 mg TD QAM TAIMCA Stop: 02/02/19 18:14 Last Admin: 01/07/19 08:48 Dose: Not Given Documented by: Nicotine Polacrilex (Nicorette 2mg) 1 piece MT PRN PRN PRN Reason: Nicotine Withdrawal Stop: 02/02/19 18:13 Risperidone (Risperdal M) 2 mg PO HS TAMICA Stop: 02/05/19 21:59 Last Admin: 01/06/19 21:13 Dose: 2 mg Documented by: Risperidone (Risperdal M) 1 mg PO BID@0900,1400 TAMICA Stop: 02/05/19 10:14 Last Admin: 01/07/19 08:46 Dose: 1 mg Documented by: Sodium Chloride (Catherine Nasal) 1 - 2 sprays NA PRN PRN PRN Reason: Nasal Dryness/Congestion Stop: 02/02/19 16:55 Thiamine HCl (Vitamin B-1) 100 mg PO QAM TAMICA Stop: 02/03/19 08:59 Last Admin: 01/07/19 08:47 Dose: 100 mg Documented by: Mental Health & Subst Abuse Tx Therapist Name of Therapist: [facility] [employer] Name of [employer]: None Post Discharge Appointments Primary Care Physician Name Of Family Doctor: [facility] Office (1) Bipolar disorder Active/Remission status: currently active Current bipolar episode type: manic Current episode severity: severe Psychotic features: without psychotic features Qualified Code(s): F31.13 - Bipolar disorder, current episode manic without psychotic features, severe
[2019-01-07] MEDS: DIVALPROEX DELAY RELEASE 500 MG TAB PO SCH ×2 (11:24→21:03)
[2019-01-08] MEDS: THIAMINE HCL 100 MG TAB PO SCH (07:15)
[2019-01-08] MEDS: DIVALPROEX DELAY RELEASE 500 MG TAB PO SCH ×2 (07:16→21:14)
[2019-01-08] MEDS: FOLIC ACID 1 MG TAB PO SCH (07:16)
[2019-01-08] MEDS: RISPERIDONE ODT 1MG PO SCH ×3 (07:18→21:15)
[2019-01-08] MEDS: NICOTINE 14 MG/24 HR PATCH TD SCH (07:18)
--- NOTE | 2019-01-08 11:00 | Psychiatric Progress Note ---
Date of Service January 08, 2019 Impression / Recommendations Impression 58yo partnered male with BPAD I who is admitted involuntarily with tammie. He has been nonadherent with outpatient treatment and off mood stabilizing medications for> 1 year, and further worsened by THC (states he has medical MJ). He was behaving in an erratic and unsafe manner, driving over 130 miles an hour, threatening staff at the [employer] store, threatened to drive his car on the sidewalk and tried to kill as many people as he could, and drove to a sporting goods store and asked them to buy black powder and make a bomb. He also told the police he wanted to , had hung a rope over the rafters to hang himself with, and asked police to shoot him. 303 was granted on 01/07/19. Patient verbalized willingness for addition of Depakote, which was offered due to concern that the patient remains manic, with poor behavioral control, is disinhibited, and unable to interact appropriately with other. There remains question that the patient will be compliant with medications or outpatient follow-up after discharge. He demonstrates limited insight and judgment, and if discharged in his current state, would likely return to the dangerous and erratic behaviors he exhibited prior to admission. He has been able to tolerate some groups, but not yet ready for a roommate or a family meeting with his girlfriend whom he lives with. Inpatient treatment remains medically necessary as he remains at acute risk of harm to self and others should he be discharged prematurely. (1) Verbalizes suicidal thoughts: - he verbalizes suicidal and homicidal thoughts with provocative disinhibited statements inpatient care is least restrictive and most appropriate setting for care at this time, treatment of bipolar tammie is mainstay of reducing risk, will need to assure he dose not have access to weapons, no specific target for HI named so no duty to warn but continue inpatient for duty to protect others 01/05 - Now denying SI/HI, reporting knowledge of necessary statements to be released from treatment. 01/08 - Continues to deny SI/HI (2) Bipolar disorder: - Medically necessary private room due to intrusiveness and inappropriateness and possible disinhibition and threats - Risperdal today will move it up to 3mg by dividing it tid (consider GALLAGHER such as Sustenna or Trinza for compliance), metabolic studies in 1-2 days when patient can tolerate (ordered for 01/05/19) - prn Risperdal 1mg po bid available prn severe agitation NTE 4mg in a day. - milieu may be excused from groups if intrusive - collateral history from /GF - needs aftercare 01/05 - Continue risperidone 1mg TID as above, consider need for further titration based on response - Continue to excuse patient from group when demonstrating poor judgement or contributing inappropriately - Attempt to have a family meeting with social work and outpatient supports 01/06 - Increase risperidone to 1 mg every morning and midday and 2 mg at bedtime. Change as needed to haloperidol 5 mg every 4 hours as needed for tammie. Consider addition of Depakote if tammie does not improve. - Fasting glucose 100, cholesterol 140. - Continue private room due to poor behavioral control. - Scheduled 303 involuntary commitment hearing. Consider 304 involuntary outpatient commitment given history of nonadherence and statements that he does not plan to follow up with outpatient treatment. 01/07 - 303 granted. - Continue risperidone and add Depakote DR for mood stabilization, irritability, and anger. Patient has taken it before and does not recall any tolerability issues. Reviewed risks, benefits and side effects, start 500 mg twice daily. - [facility] he would benefit from outpatient psychiatric care, therapy, and case management. - Family meeting to include girlfriend, possibly brother and [id number]. Recommend they remove guns from the home prior to discharge, given patient's threats to others, disinhibition, history of poor compliance, substance use, and the fact that he has been involuntarily committed multiple times which makes it a legal for him to possess firearms. -Mandated report made to [facility] IBAR[facility] regarding patient's bipolar disorder, cannabis use, and unsafe driving. Patient informed, questions answered, and provided with "what to expect in your condition has been reported to Angelo IBARRA" handout. 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 01/06 - Called [facility] and spoke with Dr. Almanzar regarding patient's hospitalization for severe tammie, and recommendations for abstinence from cannabis/THC. (4) Abdominal pain: - appreciate evaluation by ER in due diligence, abdominal CT no change from 09/2018 comparison and no obvious visual findings - asked him to show staff any BM that has blood to assure acute GI consult is not needed - if not any acute symptoms on unit will need to arrange outpatient appt with [facility] and ask for partner's assistance coordinating police involvement to reduce barriers to further evaluation and care - he has intact appetite now and is eating, perhaps Risperdal will stimulate appetite some but this is not the goal of treatment 01/07 -patient eating well, reports resolution of abdominal pain. 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 Inventory Assets Strengths: willing to take medications redirectable by staff Needs: medication aftercare safety to self and others in a locked unit Risk Factors Assessment Male: Yes : Yes Do You Have Access To A Gun?: Yes Health Problems: Yes Mental Health Diagnoses: Yes Substance Use Disorders: Yes Previous Attempt: Yes (Told police he hung a rope over the rafters with intent to hang himself the night prior to presentation) Previous Psychiatric Hospitalization: Yes Hopelessness: No Smoker: Yes Protective Factors Assessment Denominational Beliefs: No : No (Long-term girlfriend) Responsible for Young Children: No Employed: No (Disabled) Stable Relationships: No Supportive Family: No Good Rapport with Provider: No Interval History Identifying Information JULY SINGH is a 58-year-old M who currently lives in with his common- law Andreea in [facility], who has a history of bipolar I disorder and MJ abuse, and was admitted on 01/03/19 at 16:46 on a 302 involuntary commitment after making multiple threats to harm himself and others in multiple locations over the previous 48 hours. He has been noncompliant with outpatient treatment and not currently in treatment or on medication, and is on a 303 involuntary commitment as of 01/07/19. Chief Complaint "I am feeling good. I only have one physical problem, and otherwise I'm great. Oh, look at that hawk!" Review of Systems Notes Constitutional: reports generalized body aches Cardiovascular: denied Respiratory: denied Gastrointestinal: reports abdominal discomfort, no BM in "6 days" Neurological: denied Psychiatric: denies symptoms other than stated above Total of at least 10 systems reviewed, pertinent positives as above and in HPI. Sleep Information Total Hours of Sleep: 6 Sleep Comments: pt on q-15 minute checks Meal Information Percent Meal Consumed - Breakfast: 100 Percent Meal Consumed - Lunch: 100 Percent Meal Consumed - Dinner: 100 Subjective Subjective Patient was seen & assessed and interval progress reviewed with nursing and social work. Staff reports the patient has been attending groups, and for the most part is responsive to redirection after provided with warnings. Patient was reported to have made inappropriate comments about pornography in group therapy yesterday. He continues to appear labile, according to staff. Patient was seen today to assess progress since admission. He states that he is feeling "great". Patient does admit to some concern about "not coping in the past 6 days." The patient was encouraged to utilize as needed medications available, and continue to report to nursing if ineffective. Patient states that he is experiencing some abdominal discomfort, but no significant pain or bloating. Patient shares with this provider that he was "so happy yesterday. It is just so nice to have all the other patients around here, I just want to be with them." Today, the patient is verbalizing his desire for social interactions. He shares with this provider that his and son are often out of the house, and therefore unable to communicate with him as he would like. Patient states he is enjoying interacting with his peers on the unit, and is finding it helpful. To be fair, this is not always his reported perception of interactions with peers during this hospitalization. During today's interaction, he is very pleasant, discussing that his desire for social interaction often leads him to "not vetting my friends and acquaintances properly. I long so much to interact, that it leads me to bad interactions." Patient does indicate some remorse for threats he made prior to admission, recognizing that this behavior is not appropriate and stating he does not desire to behave in this way in the future. Discussion was had about further titration of Depakote, including risks, benefits, and potential side effects. Patient is agreeable to titrating his e vening dose to 1000 mg. Patient denies suicidality at this time. He denies other needs or concerns today. Physical Exam Psychiatric Orientation: alert, oriented x 3 and cooperative (Very pleasant at time of interaction) Apperance: appropriately dressed (Wearing polo shirt and scrub pants), appropriately groomed and appeared stated age Eye Contact: good eye contact Motor Behavior: no abnormal motor movements (Spends most of the encounter laying on bed, hands crossed behind head) Speech: + pressured speech (Remains hyperverbal, mildly pressured speech) Affect: + labile affect (Irritability, pleasant behavior, and angry outbursts observed today) Mood: no depressed mood ("I am great" and "I am feeling so happy") Thought Process: goal directed thought process and + circumstantial thought process (Easily distracted, often losing track of conversation) Thought Content: + cognitive distortions; no hopelessness and no worthlessness Suicidal Thoughts: denies suicidal thoughts Homicidal Thoughts: denies homicidal thoughts Hallucinations: no auditory hallucinations and no visual hallucinations Cognition: attention grossly intact and language grossly intact Insight: + limited insight Judgement: + impaired judgement Vital Signs (Past 24 Hours) Last Vital Signs Temp 36.6 C 01/08/19 06:46 Pulse 86 01/08/19 06:46 Resp 18 01/08/19 06:46 BP 112/70 01/08/19 06:46 Pulse Ox 97 01/06/19 20:53 Results & Data Current Inpatient Medications Current Inpatient Medications: Current Inpatient Medications Acetaminophen (Tylenol) 650 mg PO Q4H PRN PRN Reason: Headache or Minor Fever Stop: 02/02/19 16:55 Al Hydrox/Mg Hydrox/Simethicone (Maalox) 30 ml PO Q4H PRN PRN Reason: GI Upset Stop: 02/02/19 16:55 Bismuth Subsalicylate (Kaopectate) 15 ml PO PRN PRN PRN Reason: Loose Stool Stop: 02/02/19 16:55 Divalproex Sodium (Depakote Delay Release) 500 mg PO BID TAMICA Stop: 02/06/19 10:59 Last Admin: 01/08/19 07:16 Dose: 500 mg Documented by: Folic Acid (Folvite) 1 mg PO QAM TAMICA Stop: 02/03/19 08:59 Last Admin: 01/08/19 07:16 Dose: 1 mg Documented by: Haloperidol (Haldol) 5 mg PO Q4H PRN PRN Reason: tammie/psychosis Stop: 02/05/19 10:04 Hydroxyzine HCl (Vistaril) 25 mg PO Q4H PRN PRN Reason: Anxiety Stop: 02/02/19 16:55 Hydroxyzine HCl (Vistaril) 50 mg PO HSZ PRN PRN Reason: Insomnia Stop: 02/02/19 16:55 Last Admin: 01/06/19 00:05 Dose: 50 mg Documented by: Magnesium Hydroxide (Milk Of Magnesia) 30 ml PO DAILY PRN PRN Reason: Constipation Stop: 02/02/19 16:55 Last Admin: 01/07/19 04:36 Dose: 30 ml Documented by: Miscellaneous (Remove Nicoderm Patch) 1 ea N/A HS [facility] Stop: 02/03/19 00:00 Last Admin: 01/07/19 21:09 Dose: Not Given Documented by: Nicotine (Nicoderm Cq) 14 mg TD QAM [facility] Stop: 02/02/19 18:14 Last Admin: 01/08/19 07:18 Dose: Not Given Documented by: Nicotine Polacrilex (Nicorette 2mg) 1 piece MT PRN PRN PRN Reason: Nicotine Withdrawal Stop: 02/02/19 18:13 Risperidone (Risperdal M) 2 mg PO HS [facility] Stop: 02/05/19 21:59 Last Admin: 01/07/19 21:03 Dose: 2 mg Documented by: Risperidone (Risperdal M) 1 mg PO BID@0900,1400 [facility] Stop: 02/05/19 10:14 Last Admin: 01/08/19 07:18 Dose: 1 mg Documented by: Sodium Chloride (Power Nasal) 1 - 2 sprays NA PRN PRN PRN Reason: Nasal Dryness/Congestion Stop: 02/02/19 16:55 Thiamine HCl (Vitamin B-1) 100 mg PO QAM [facility] Stop: 02/03/19 08:59 Last Admin: 01/08/19 07:15 Dose: 100 mg Documented by: Mental Health & Subst Abuse Tx Therapist Name of Therapist: [facility] Office Child Custody Evaluator Name of Child Custody Evaluator: None Post Discharge Appointments Primary Care Physician Name Of Family Doctor: [facility] Office (1) Bipolar disorder Active/Remission status: currently active Current bipolar episode type: manic Current episode severity: severe Psychotic features: without psychotic features Qualified Code(s): F31.13 - Bipolar disorder, current episode manic without psychotic features, severe
[2019-01-08] MEDS: MAGNESIUM HYDROXIDE SUSP 30 ML UDC PO PRN (13:40)
[2019-01-08 19:05] VITALS: O2SAT 99
[2019-01-09] MEDS: FOLIC ACID 1 MG TAB PO SCH (08:56)
[2019-01-09] MEDS: DIVALPROEX DELAY RELEASE 500 MG TAB PO SCH ×2 (08:56→21:56)
[2019-01-09] MEDS: THIAMINE HCL 100 MG TAB PO SCH (08:57)
[2019-01-09] MEDS: NICOTINE 14 MG/24 HR PATCH TD SCH (08:57)
[2019-01-09] MEDS: RISPERIDONE ODT 1MG PO SCH ×3 (08:57→21:56)
--- NOTE | 2019-01-09 10:29 | Psychiatric Progress Note ---
Date of Service January 09, 2019 Impression / Recommendations Impression 58yo partnered male with BPAD I who is admitted involuntarily with tammie. He has been nonadherent with outpatient treatment and off mood stabilizing medications for> 1 year, and further worsened by THC (states he has medical MJ). He was behaving in an erratic and unsafe manner, driving over 130 miles an hour, threatening staff at the [employer] store, threatened to drive his car on the sidewalk and tried to kill as many people as he could, and drove to a sporting goods store and asked them to buy black powder and make a bomb. He also told the police he wanted to , had hung a rope over the rafters to hang himself with, and asked police to shoot him. 303 was granted on 01/07/19. Patient verbalized willingness for addition of Depakote, which was offered due to concern that the patient remains manic, with poor behavioral control, is disinhibited, and unable to interact appropriately with other. There remains question that the patient will be compliant with medications or outpatient follow-up after discharge. He demonstrates limited insight and judgment, and if discharged in his current state, would likely return to the dangerous and erratic behaviors he exhibited prior to admission. He has been able to tolerate some groups, but not yet ready for a roommate or a family meeting with his girlfriend whom he lives with. Inpatient treatment remains medically necessary as he remains at acute risk of harm to self and others should he be discharged prematurely. (1) Verbalizes suicidal thoughts: - he verbalizes suicidal and homicidal thoughts with provocative disinhibited statements inpatient care is least restrictive and most appropriate setting for care at this time, treatment of bipolar tammie is mainstay of reducing risk, will need to assure he dose not have access to weapons, no specific target for HI named so no duty to warn but continue inpatient for duty to protect others 01/05 - Now denying SI/HI, reporting knowledge of necessary statements to be released from treatment. 01/08 - 01/09 - Continues to deny SI/HI (2) Bipolar disorder: - Medically necessary private room due to intrusiveness and inappropriateness and possible disinhibition and threats - Risperdal today will move it up to 3mg by dividing it tid (consider GALLAGHER such as Sustenna or Trinza for compliance), metabolic studies in 1-2 days when patient can tolerate (ordered for 01/05/19) - prn Risperdal 1mg po bid available prn severe agitation NTE 4mg in a day. - milieu may be excused from groups if intrusive - collateral history from /GF - needs aftercare 01/05 - Continue risperidone 1mg TID as above, consider need for further titration based on response - Continue to excuse patient from group when demonstrating poor judgement or contributing inappropriately - Attempt to have a family meeting with social work and outpatient supports 01/06 - Increase risperidone to 1 mg every morning and midday and 2 mg at bedtime. Change as needed to haloperidol 5 mg every 4 hours as needed for tammie. Consider addition of Depakote if tammie does not improve. - Fasting glucose 100, cholesterol 140. - Continue private room due to poor behavioral control. - Scheduled 303 involuntary commitment hearing. Consider 304 involuntary outpatient commitment given history of nonadherence and statements that he does not plan to follow up with outpatient treatment. 01/07 - 303 granted. - Continue risperidone and add Depakote DR for mood stabilization, irritability, and anger. Patient has taken it before and does not recall any tolerability issues. Reviewed risks, benefits and side effects, start 500 mg twice daily. - [facility] he would benefit from outpatient psychiatric care, therapy, and case management. - Family meeting to include girlfriend, possibly brother and [id number]. Recommend they remove guns from the home prior to discharge, given patient's threats to others, disinhibition, history of poor compliance, substance use, and the fact that he has been involuntarily committed multiple times which makes it a legal for him to possess firearms. -Mandated report made to [facility] I[facility] regarding patient's bipolar disorder, cannabis use, and unsafe driving. Patient informed, questions answered, and provided with "what to expect in your condition has been reported to Angelo IBARRA" h andout. 01/08 - Depakote DR titrated to 500mg/1000mg daily - condition has improved but patient remains hyperverbal, disinhibited, and irritable at times - Continue to solidify aftercare arrangements - Contact to be made with police regarding patient's involuntary commitment, threats to others, and current possession of firearms - family did not see the concern in the situation and is not willing to remove the firearms from the home 01/09 - Continue medication regimen as above, patient appearing more appropriate in regard to behavior and response to redirection; however, did have an outburst yesterday - Continue to solidify aftercare arrangements (3) Drug abuse: - 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 01/06 - Called [facility] and spoke with Dr. Almanzar regarding patient's hospitalization for severe tammie, and recommendations for abstinence from cannabis/THC. (4) Abdominal pain: - appreciate evaluation by ER in due diligence, abdominal CT no change from 09/2018 comparison and no obvious visual findings - asked him to show staff any BM that has blood to assure acute GI consult is not needed - if not any acute symptoms on unit will need to arrange outpatient appt with [facility] and ask for partner's assistance coordinating police involvement to reduce barriers to further evaluation and care - he has intact appetite now and is eating, perhaps Risperdal will stimulate appetite some but this is not the goal of treatment 01/07 -patient eating well, reports resolution of abdominal pain. 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 01/09 - Pt reports constipation, having no BMs since admission - no benefit from MOM, ordered colace Inventory Assets Strengths: willing to take medications redirectable by staff Needs: medication aftercare safety to self and others in a locked unit Risk Factors Assessment Male: Yes : Yes Do You Have Access To A Gun?: Yes Health Problems: Yes Mental Health Diagnoses: Yes Substance Use Disorders: Yes Previous Attempt: Yes (Told police he hung a rope over the rafters with intent to hang himself the night prior to presentation) Previous Psychiatric Hospitalization: Yes Hopelessness: No Smoker: Yes Protective Factors Assessment Scientology Beliefs: No : No (Long-term girlfriend) Responsible for Young Children: No Employed: No (Disabled) Stable Relationships: No Supportive Family: No Good Rapport with Provider: No Interval History Identifying Information JULY SINGH is a 58-year-old M who currently lives in with his common- law Andreea in [facility], who has a history of bipolar I disorder and MJ abuse, and was admitted on 01/03/19 at 16:46 on a 302 involuntary commitment after making multiple threats to harm himself and others in multiple locations over the previous 48 hours. He has been noncompliant with outpatient treatment and not currently in treatment or on medication, and is on a 303 involuntary commitment as of 01/07/19. Chief Complaint "Well, I've only had one cup of coffee so far today...so I'm not sure. I guess I would say bewildered." Review of Systems Notes Constitutional: denied Cardiovascular: denied Respiratory: denied Gastrointestinal: reports continued constipation Neurological: denied Psychiatric: denies symptoms other than stated above Total of at least 10 systems reviewed, pertinent positives as above and in HPI. Sleep Information Total Hours of Sleep: 5.5 Sleep Comments: pt on q-15 minute checks Meal Information Percent Meal Consumed - Breakfast: 100 Percent Meal Consumed - Lunch: 100 Percent Meal Consumed - Dinner: 100 Subjective Subjective Patient was seen & assessed and interval progress reviewed with treatment team. Staff reports patient continues to demonstrate improvements in regards to lability of mood and irritable outbursts. Patient did have an angry response to an altercation seemingly initiated by another patient. He was able to process his thoughts with staff, and calmed down shortly thereafter. Patient was seen today to assess progress since admission. He states that he is "so tired" today stating he has not yet had a sufficient amount of coffee. Patient verbalizes to this provider that he is "writing in this book, coming up with tasks I need to get done, and then true [employer] fashion and prioritizing them up accordingly." Patient was asked what is currently on his list, to which he replies "someone to buy firewood from, figuring out when my puppy is due for inoculations." Patient does report to this provider "it seems to me that my thoughts are not racing. I am only thinking about a few things now, not everything all at once." The p atient continues to be hyperverbal, but speech does not seem to be as pressured. Patient denies suicidal and homicidal ideation. He does state "my only concern at this point is that I leave by the . I have a dentist appointment that took a year to schedule." The patient denies other needs or concerns today, aside from ongoing constipation for which he is agreeable to a trial of Colace. Physical Exam Psychiatric Orientation: alert, oriented x 3 and cooperative Apperance: appropriately dressed, appropriately groomed and appeared stated age Eye Contact: good eye contact Motor Behavior: no abnormal motor movements (Observed while laying in bed) Speech: no pressured speech and + abnormal rate/rhythm/volume of speech (Remains hyperverbal) Affect: euthymic affect (Brightens appropriately, is more appropriately subdued today) Mood: no depressed mood ("I am great, I am happy. Things are good.") Thought Process: goal directed thought process (Able to verbalize a few specific goals), clear/coherent thought process and thought association intact Delusional content remains questionable, patient verbalizes that his brother was voted #1 shell assembler, did President [employer]'s taxes, and knew "[employer] - the people who assassinated [employer]" Suicidal Thoughts: denies suicidal thoughts Homicidal Thoughts: denies homicidal thoughts Hallucinations: no auditory hallucinations and no visual hallucinations Cognition: attention grossly intact and language grossly intact Insight: + impaired insight Judgement: + fair judgement Vital Signs (Past 24 Hours) Last Vital Signs Temp 36.6 C 01/08/19 06:46 Pulse 65 01/08/19 19:03 Resp 16 01/08/19 19:03 BP 112/62 01/08/19 19:03 Pulse Ox 99 01/08/19 19:03 Results & Data Current Inpatient Medications Current Inpatient Medications: Current Inpatient Medications Acetaminophen (Tylenol) 650 mg PO Q4H PRN PRN Reason: Headache or Minor Fever Stop: 02/02/19 16:55 Al Hydrox/Mg Hydrox/Simethicone (Maalox) 30 ml PO Q4H PRN PRN Reason: GI Upset Stop: 02/02/19 16:55 Bismuth Subsalicylate (Kaopectate) 15 ml PO PRN PRN PRN Reason: Loose Stool Stop: 02/02/19 16:55 Divalproex Sodium (Depakote Delay Release) 500 mg PO QAM [facility] Stop: 02/08/19 08:59 Last Admin: 01/09/19 08:56 Dose: 500 mg Documented by: Divalproex Sodium (Depakote Delay Release) 1,000 mg PO HS [facility] Stop: 02/07/19 21:59 Last Admin: 01/08/19 21:14 Dose: 1,000 mg Documented by: Folic Acid (Folvite) 1 mg PO QAM [facility] Stop: 02/03/19 08:59 Last Admin: 01/09/19 08:56 Dose: 1 mg Documented by: Haloperidol (Haldol) 5 mg PO Q4H PRN PRN Reason: tammie/psychosis Stop: 02/05/19 10:04 Hydroxyzine HCl (Vistaril) 25 mg PO Q4H PRN PRN Reason: Anxiety Stop: 02/02/19 16:55 Hydroxyzine HCl (Vistaril) 50 mg PO HSZ PRN PRN Reason: Insomnia Stop: 02/02/19 16:55 Last Admin: 01/06/19 00:05 Dose: 50 mg Documented by: Magnesium Hydroxide (Milk Of Magnesia) 30 ml PO DAILY PRN PRN Reason: Constipation Stop: 02/02/19 16:55 Last Admin: 01/08/19 13:40 Dose: 30 ml Documented by: Miscellaneous (Remove Nicoderm Patch) 1 ea N/A HS [facility] Stop: 02/03/19 00:00 Last Admin: 01/08/19 21:16 Dose: Not Given Documented by: Nicotine (Nicoderm Cq) 14 mg TD QAM [facility] Stop: 02/02/19 18:14 Last Admin: 01/09/19 08:57 Dose: Not Given Documented by: Nicotine Polacrilex (Nicorette 2mg) 1 piece MT PRN PRN PRN Reason: Nicotine Withdrawal Stop: 02/02/19 18:13 Risperidone (Risperdal M) 2 mg PO HS [facility] Stop: 02/05/19 21:59 Last Admin: 01/08/19 21:15 Dose: 2 mg Documented by: Risperidone (Risperdal M) 1 mg PO BID@0900,1400 [facility] Stop: 02/05/19 10:14 Last Admin: 01/09/19 08:57 Dose: 1 mg Documented by: Sodium Chloride ([place] Nasal) 1 - 2 sprays NA PRN PRN PRN Reason: Nasal Dryness/Congestion Stop: 02/02/19 16:55 Thiamine HCl (Vitamin B-1) 100 mg PO QAM [facility] Stop: 02/03/19 08:59 Last Admin: 01/09/19 08:57 Dose: 100 mg Documented by: Mental Health & Subst Abuse Tx Therapist Name of Therapist: [facility] Law Enforcement Instructor Name of Law Enforcement Instructor: None Post Discharge Appointments Primary Care Physician Name Of Family Doctor: [facility] (1) Bipolar disorder Active/Remission status: currently active Current bipolar episode type: manic Current episode severity: severe Psychotic features: without psychotic features Qualified Code(s): F31.13 - Bipolar disorder, current episode manic without psychotic features, severe
[2019-01-09] MEDS ORDERED: DOCUSATE SODIUM 100 MG CAP PO PRN (10:30)
[2019-01-10] MEDS: THIAMINE HCL 100 MG TAB PO SCH (08:29)
[2019-01-10] MEDS: RISPERIDONE ODT 1MG PO SCH ×3 (08:29→21:36)
[2019-01-10] MEDS: DIVALPROEX DELAY RELEASE 500 MG TAB PO SCH ×2 (08:29→21:35)
[2019-01-10] MEDS: FOLIC ACID 1 MG TAB PO SCH (08:29)
[2019-01-10] MEDS: NICOTINE 14 MG/24 HR PATCH TD SCH (08:30)
--- NOTE | 2019-01-10 16:08 | Psychiatric Progress Note ---
Date of Service January 10, 2019 Impression / Recommendations Impression 58yo partnered male with BPAD I who is admitted involuntarily with tammie. He has been nonadherent with outpatient treatment and off mood stabilizing medications for> 1 year, and further worsened by THC (states he has medical MJ). He was behaving in an erratic and unsafe manner, driving over 130 miles an hour, threatening staff at the [employer] store, threatened to drive his car on the sidewalk and tried to kill as many people as he could, and drove to a sporting goods store and asked them to buy black powder and make a bomb. He also told the police he wanted to , had hung a rope over the rafters to hang himself with, and asked police to shoot him. 303 was granted on 01/07/19. Patient verbalized willingness for addition of Depakote, which was offered due to concern that the patient remains manic, with poor behavioral control, is disinhibited, and unable to interact appropriately with other. There remains question that the patient will be compliant with medications or outpatient follow-up after discharge. He demonstrates limited insight and judgment, and if discharged in his current state, would likely return to the dangerous and erratic behaviors he exhibited prior to admission. He has been able to tolerate some groups, but not yet ready for a roommate or a family meeting with his girlfriend whom he lives with. Inpatient treatment remains medically necessary as he remains at acute risk of harm to self and others should he be discharged prematurely. (1) Verbalizes suicidal thoughts: - he verbalizes suicidal and homicidal thoughts with provocative disinhibited statements inpatient care is least restrictive and most appropriate setting for care at this time, treatment of bipolar tammie is mainstay of reducing risk, will need to assure he dose not have access to weapons, no specific target for [facility] named so no duty to warn but continue inpatient for duty to protect others 01/05 - Now denying SI/HI, reporting knowledge of necessary statements to be released from treatment. 01/08 - 01/09 - Continues to deny SI/HI (2) Bipolar disorder: - Medically necessary private room due to intrusiveness and inappropriateness and possible disinhibition and threats - Risperdal today will move it up to 3mg by dividing it tid (consider GALLAGHER such as Sustenna or Trinza for compliance), metabolic studies in 1-2 days when patient can tolerate (ordered for 01/05/19) - prn Risperdal 1mg po bid available prn severe agitation NTE 4mg in a day. - milieu may be excused from groups if intrusive - collateral history from /GF - needs aftercare 01/05 - Continue risperidone 1mg TID as above, consider need for further titration based on response - Continue to excuse patient from group when demonstrating poor judgement or contributing inappropriately - Attempt to have a family meeting with social work and outpatient supports 01/06 - Increase risperidone to 1 mg every morning and midday and 2 mg at bedtime. Change as needed to haloperidol 5 mg every 4 hours as needed for tammie. Consider addition of Depakote if tammie does not improve. - Fasting glucose 100, cholesterol 140. - Continue private room due to poor behavioral control. - Scheduled 303 involuntary commitment hearing. Consider 304 involuntary outpatient commitment given history of nonadherence and statements that he does not plan to follow up with outpatient treatment. 01/07 - 303 granted. - Continue risperidone and add Depakote DR for mood stabilization, irritability, and anger. Patient has taken it before and does not recall any tolerability issues. Reviewed risks, benefits and side effects, start 500 mg twice daily. - [facility] he would benefit from outpatient psychiatric care, therapy, and case management. - Family meeting to include girlfriend, possibly brother and [id number]. Recommend they remove guns from the home prior to discharge, given patient's threats to others, disinhibition, history of poor compliance, substance use, and the fact that he has been involuntarily committed multiple times which makes it a legal for him to possess firearms. -Mandated report made to [facility] regarding patient's bipolar disorder, cannabis use, and unsafe driving. Patient informed, questions answered, and provided with "what to expect in your condition has been reported to [facility]BARRA" h andout. 01/08 - Depakote DR titrated to 500mg/1000mg daily - condition has improved but patient remains hyperverbal, disinhibited, and irritable at times - Continue to solidify aftercare arrangements - Contact to be made with police regarding patient's involuntary commitment, threats to others, and current possession of firearms - family did not see the concern in the situation and is not willing to remove the firearms from the home 01/09 - Continue medication regimen as above, patient appearing more appropriate in regard to behavior and response to redirection; however, did have an outburst yesterday - Continue to solidify aftercare arrangements 01/10 - trend positive. progressively less labile. hypomanic appearing this am. 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 01/06 - Called [facility] and spoke with Dr. Almanzar regarding patient's hospitalization for severe tammie, and recommendations for abstinence from cannabis/THC. (4) Abdominal pain: - appreciate evaluation by ER in due diligence, abdominal CT no change from 09/2018 comparison and no obvious visual findings - asked him to show staff any BM that has blood to assure acute GI consult is not needed - if not any acute symptoms on unit will need to arrange outpatient appt with [facility] and ask for partner's assistance coordinating police involvement to reduce barriers to further evaluation and care - he has intact appetite now and is eating, perhaps Risperdal will stimulate appetite some but this is not the goal of treatment 01/07 -patient eating well, reports resolution of abdominal pain. 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 01/09 - Pt reports constipation, having no BMs since admission - no benefit from MOM, ordered colace 01/10 - change colace to bid, add fiber supp, push fluids, MOM prn Inventory Assets Strengths: willing to take medications redirectable by staff Needs: medication aftercare safety to self and others in a locked unit Risk Factors Assessment Male: Yes : Yes Do You Have Access To A Gun?: Yes Health Problems: Yes Mental Health Diagnoses: Yes Substance Use Disorders: Yes Previous Attempt: Yes (Told police he hung a rope over the rafters with intent to hang himself the night prior to presentation) Previous Psychiatric Hospitalization: Yes Hopelessness: No Smoker: Yes Protective Factors Assessment Mosque Beliefs: No : No (Long-term girlfriend) Responsible for Young Children: No Employed: No (Disabled) Stable Relationships: No Supportive Family: No Good Rapport with Provider: No Interval History Identifying Information JULY SINGH is a 58-year-old M who currently lives in with his common- law Andreea in [facility], who has a history of bipolar I disorder and MJ abuse, and was admitted on 01/03/19 at 16:46 on a 302 involuntary commitment after making multiple threats to harm himself and others in multiple locations over the previous 48 hours. He has been noncompliant with outpatient treatment and not currently in treatment or on medication, and is on a 303 involuntary commitment as of 01/07/19. Chief Complaint "I live a elias life." Review of Systems Notes denies muscle stiffness. small BM yesterday Sleep Information Total Hours of Sleep: 6.5 Sleep Comments: pt on q-15 minute checks Meal Information Percent Meal Consumed - Breakfast: 100 Percent Meal Consumed - Lunch: 100 Percent Meal Consumed - Dinner: 100 Subjective Subjective Patient was seen & assessed and interval progress reviewed with treatment team. Per staff pt continues to c/o constipation. Appears grandiose and variable affect but with improvement overall. On interview pt reports feeling well today. Presents as hyperverbal and animated, but largely pleasant. Speaks of his many accomplishments but also credits his for supporting him financially. He denies SE associated with risperdal or depakote so far. He denies thought racing or AVH. Physical Exam Psychiatric Orientation: alert and cooperative Apperance: appeared stated age thin Eye Contact: good eye contact Motor Behavior: no psychomotor agitation, n EPS, n akathisia and n tremor Speech: + pressured speech (mild) Affect: euthymic affect good Thought Process: + circumstantial thought process and + tangential thought process (mildly) grandiosity Suicidal Thoughts: denies suicidal thoughts Homicidal Thoughts: denies homicidal thoughts Hallucinations: no auditory hallucinations and no visual hallucinations Cognition: + attention not intact Insight: + limited insight Judgement: + limited judgement Vital Signs (Past 24 Hours) Last Vital Signs Temp 36.6 C 01/10/19 06:55 Pulse 80 01/10/19 06:56 Resp 18 01/10/19 06:55 BP 113/54 L 01/10/19 06:56 Pulse Ox 99 01/08/19 19:03 Results & Data Current Inpatient Medications Current Inpatient Medications: Current Inpatient Medications Acetaminophen (Tylenol) 650 mg PO Q4H PRN PRN Reason: Headache or Minor Fever Stop: 11/18/19 16:55 Al Hydrox/Mg Hydrox/Simethicone (Maalox) 30 ml PO Q4H PRN PRN Reason: GI Upset Stop: 02/02/19 16:55 Bismuth Subsalicylate (Kaopectate) 15 ml PO PRN PRN PRN Reason: Loose Stool Stop: 02/02/19 16:55 Calcium Polycarbophil (Fibercon) 625 mg PO QPM [facility] Stop: 02/09/19 20:59 Divalproex Sodium (Depakote Delay Release) 500 mg PO QAM [facility] Stop: 02/08/19 08:59 Last Admin: 01/10/19 08:29 Dose: 500 mg Documented by: Divalproex Sodium (Depakote Delay Release) 1,000 mg PO HS [facility] Stop: 02/07/19 21:59 Last Admin: 01/09/19 21:56 Dose: 1,000 mg Documented by: Docusate Sodium (Colace) 100 mg PO BID [facility] Stop: 02/09/19 20:59 Folic Acid (Folvite) 1 mg PO QAM [facility] Stop: 02/03/19 08:59 Last Admin: 01/10/19 08:29 Dose: 1 mg Documented by: Haloperidol (Haldol) 5 mg PO Q4H PRN PRN Reason: tammie/psychosis Stop: 02/05/19 10:04 Hydroxyzine HCl (Vistaril) 25 mg PO Q4H PRN PRN Reason: Anxiety Stop: 02/02/19 16:55 Hydroxyzine HCl (Vistaril) 50 mg PO HSZ PRN PRN Reason: Insomnia Stop: 02/02/19 16:55 Last Admin: 01/06/19 00:05 Dose: 50 mg Documented by: Magnesium Hydroxide (Milk Of Magnesia) 30 ml PO DAILY PRN PRN Reason: Constipation Stop: 02/02/19 16:55 Last Admin: 01/08/19 13:40 Dose: 30 ml Documented by: Miscellaneous (Remove Nicoderm Patch) 1 ea N/A HS [facility] Stop: 02/03/19 00:00 Last Admin: 01/09/19 22:03 Dose: Not Given Documented by: Nicotine (Nicoderm Cq) 14 mg TD QAM [facility] Stop: 02/02/19 18:14 Last Admin: 01/10/19 08:30 Dose: Not Given Documented by: Nicotine Polacrilex (Nicorette 2mg) 1 piece MT PRN PRN PRN Reason: Nicotine Withdrawal Stop: 02/02/19 18:13 Risperidone (Risperdal M) 2 mg PO HS [facility]ICA Stop: 02/05/19 21:59 Last Admin: 01/09/19 21:56 Dose: 2 mg Documented by: Risperidone (Risperdal M) 1 mg PO BID@0900,1400 TAMICA Stop: 02/05/19 10:14 Last Admin: 01/10/19 14:11 Dose: 1 mg Documented by: Sodium Chloride (Lyon Nasal) 1 - 2 sprays NA PRN PRN PRN Reason: Nasal Dryness/Congestion Stop: 02/02/19 16:55 Thiamine HCl (Vitamin B-1) 100 mg PO QAM [facility] Stop: 02/03/19 08:59 Last Admin: 01/10/19 08:29 Dose: 100 mg Documented by: Mental Health & Subst Abuse Tx Therapist Name of Therapist: [facility] Operating Room Scheduler Name of Operating Room Scheduler: Eliecer Hernandez [facility] Suicide Prevention Worker Phone Number for Operating Room Scheduler: [phone] X [phone] Post Discharge Appointments Primary Care Physician Name Of Family Doctor: [facility] (1) Bipolar disorder Active/Remission status: currently active Current bipolar episode type: manic Current episode severity: severe Psychotic features: without psychotic features Qualified Code(s): F31.13 - Bipolar disorder, current episode manic without psychotic features, severe
[2019-01-10] MEDS: CALCIUM POLYCARBOPHIL 625MG TAB PO SCH (21:35)
[2019-01-10] MEDS: DOCUSATE SODIUM 100 MG CAP PO SCH (21:35)
[2019-01-11] MEDS: DIVALPROEX DELAY RELEASE 500 MG TAB PO SCH ×2 (09:03→21:57)
[2019-01-11] MEDS: DOCUSATE SODIUM 100 MG CAP PO SCH ×2 (09:03→21:57)
[2019-01-11] MEDS: THIAMINE HCL 100 MG TAB PO SCH (09:03)
[2019-01-11] MEDS: FOLIC ACID 1 MG TAB PO SCH (09:03)
[2019-01-11] MEDS: RISPERIDONE ODT 1MG PO SCH ×3 (09:04→21:58)
[2019-01-11] MEDS: NICOTINE 14 MG/24 HR PATCH TD SCH (09:23)
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
[2019-01-11] MEDS: CALCIUM POLYCARBOPHIL 625MG TAB PO SCH (21:57)
[2019-01-12] MEDS: FOLIC ACID 1 MG TAB PO SCH (08:36)
[2019-01-12] MEDS: DOCUSATE SODIUM 100 MG CAP PO SCH ×2 (08:36→20:59)
[2019-01-12] MEDS: RISPERIDONE ODT 1MG PO SCH ×3 (08:36→20:56)
[2019-01-12] MEDS: THIAMINE HCL 100 MG TAB PO SCH (08:36)
[2019-01-12] MEDS: DIVALPROEX DELAY RELEASE 500 MG TAB PO SCH ×2 (08:36→20:58)
[2019-01-12] MEDS: NICOTINE 14 MG/24 HR PATCH TD SCH (08:41)
--- NOTE | 2019-01-12 11:59 | Psychiatric Progress Note ---
Date of Service January 12, 2019 Impression / Recommendations Impression 58yo partnered male with BPAD I who is admitted involuntarily with tammie. He has been nonadherent with outpatient treatment and off mood stabilizing medications for> 1 year, and further worsened by THC (states he has medical MJ). He was behaving in an erratic and unsafe manner, driving over 130 miles an hour, threatening staff at the [employer] store, threatened to drive his car on the sidewalk and tried to kill as many people as he could, and drove to a sporting goods store and asked them to buy black powder and make a bomb. He also told the police he wanted to , had hung a rope over the rafters to hang himself with, and asked police to shoot him. 303 was granted on 01/07/19. Patient verbalized willingness for addition of Depakote, which was offered due to concern that the patient remains manic, with poor behavioral control, is disinhibited, and unable to interact appropriately with other. There remains question that the patient will be compliant with medications or outpatient follow-up after discharge. He demonstrates limited insight and judgment, and if discharged in his current state, would likely return to the dangerous and erratic behaviors he exhibited prior to admission. He has been able to tolerate some groups, and a family meeting with his girlfriend of 34 years will be held tomorrow afternoon. Inpatient treatment remains medically necessary as he remains at acute risk of harm to self and others should he be discharged prematurely. (1) Verbalizes suicidal thoughts: - he verbalizes suicidal and homicidal thoughts with provocative disinhibited statements inpatient care is least restrictive and most appropriate setting for care at this time, treatment of bipolar tammie is mainstay of reducing risk, will need to assure he dose not have access to weapons, no specific target for HI named so no duty to warn but continue inpatient for duty to protect others 01/05 - Now denying SI/HI, reporting knowledge of necessary statements to be released from treatment. 01/08 - 01/09 - Continues to deny SI/HI 01/11/2019 -Denies intent or plan of harm to self or others however he speaks of violence rather flippantly when recalling anger prior to admission 01/12 - Denies SI/HI, reports recognition that his behavior prior to admission was not socially appropriate (2) Bipolar disorder: - Medically necessary private room due to intrusiveness and inappropriateness and possible disinhibition and threats - Risperdal today will move it up to 3mg by dividing it tid (consider GALLAGHER such as Sustenna or Trinza for compliance), metabolic studies in 1-2 days when patient can tolerate (ordered for 01/05/19) - prn Risperdal 1mg po bid available prn severe agitation NTE 4mg in a day. - milieu may be excused from groups if intrusive - collateral history from /GF - needs aftercare 01/05 - Continue risperidone 1mg TID as above, consider need for further titration based on response - Continue to excuse patient from group when demonstrating poor judgement or contributing inappropriately - Attempt to have a family meeting with social work and outpatient supports 01/06 - Increase risperidone to 1 mg every morning and midday and 2 mg at bedtime. Change as needed to haloperidol 5 mg every 4 hours as needed for tammie. Consider addition of Depakote if tammie does not improve. - Fasting glucose 100, cholesterol 140. - Continue private room due to poor behavioral control. - Scheduled 303 involuntary commitment hearing. Consider 304 involuntary outpatient commitment given history of nonadherence and statements that he does not plan to follow up with outpatient treatment. 01/07 - 303 granted. - Continue risperidone and add Depakote DR for mood stabilization, irritabil ity, and anger. Patient has taken it before and does not recall any tolerability issues. Reviewed risks, benefits and side effects, start 500 mg twice daily. - [facility] he would benefit from outpatient psychiatric care, therapy, and case management. - Family meeting to include girlfriend, possibly brother and [id number]. Recommend they remove guns from the home prior to discharge, given patient's threats to others, disinhibition, history of poor compliance, substance use, and the fact that he has been involuntarily committed multiple times which makes it a legal for him to possess firearms. -Mandated report made to Angelo IBARRA regarding patient's bipolar disorder, cannabis use, and unsafe driving. Patient informed, questions answered, and provided with "what to expect in your condition has been reported to Angelo IBARRA" handout. 01/08 - Depakote DR titrated to 500mg/1000mg daily - condition has improved but patient remains hyperverbal, disinhibited, and irritable at times - Continue to solidify aftercare arrangements - Contact to be made with police regarding patient's involuntary commitment, threats to others, and current possession of firearms - family did not see the concern in the situation and is not willing to remove the firearms from the home 01/09 - Continue medication regimen as above, patient appearing more appropriate in regard to behavior and response to redirection; however, did have an outburst yesterday - Continue to solidify aftercare arrangements 01/10 - trend positive. progressively less labile. hypomanic appearing this am. con tinue depakote and risperdal as scheduled 01/11/2019 -Again appearing more calm, less grandiose, but still hyperverbal and disinhibited. A little early yet for a Depakote level however patient informed will likely be checked in the next few days. -Illness education provided. Reviewed importance of long-term maintenance mood stabilization and reviewed effectiveness of cognitive behavioral therapy additionally. Patient expressed willingness to again engage in therapy as an outpatient. 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 01/06 - Called [facility] and spoke with Dr. Almanzar regarding patient's hospitalization for severe tammie, and recommendations for abstinence from cannabis/THC. (4) Abdominal pain: - appreciate evaluation by ER in due diligence, abdominal CT no change from 09/2018 comparison and no obvious visual findings - asked him to show staff any BM that has blood to assure acute GI consult is not needed - if not any acute symptoms on unit will need to arrange outpatient appt with [facility] and ask for partner's assistance coordinating police involvement to reduce barriers to further evaluation and care - he has intact appetite now and is eating, perhaps Risperdal will stimulate appetite some but this is not the goal of treatment 01/07 -patient eating well, reports resolution of abdominal pain. Recommend follow-up as scheduled with his stitch marker at the [facility]. 01/09 - Pt reports constipation, having no BMs since admission - no benefit from MOM, ordered colace 01/10 - change colace to bid, add fiber supp, push fluids, MOM prn 01/11/2019 - + BM continue OBR Inventory Assets Strengths: willing to take medications redirectable by staff Needs: medication aftercare safety to self and others in a locked unit Risk Factors Assessment Male: Yes : Yes Do You Have Access To A Gun?: Yes Health Problems: Yes Mental Health Diagnoses: Yes Substance Use Disorders: Yes Previous Attempt: Yes (Told police he hung a rope over the rafters with intent to hang himself the night prior to presentation) Previous Psychiatric Hospitalization: Yes Hopelessness: No Smoker: Yes Protective Factors Assessment Roman Catholic Beliefs: No : No (Long-term girlfriend) Responsible for Young Children: No Employed: No (Disabled) Stable Relationships: No Supportive Family: No Good Rapport with Provider: No Interval History Identifying Information JULY SINGH is a 58-year-old M who currently lives in with his common- law Andreea in [facility], who has a history of bipolar I disorder and MJ abuse, and was admitted on 01/03/19 at 16:46 on a 302 involuntary commitment after making multiple threats to harm himself and others in multiple locations over the previous 48 hours. He has been noncompliant with outpatient treatment and not currently in treatment or on medication, and is on a 303 involuntary commitment as of 01/07/19. Chief Complaint "I feel great! I have no complaints, I'm just ready to get out of here and go see my puppy." Review of Systems Notes Constitutional: reports "foamy feeling" in head - reports it is not unusual HEENT: reports mildly worsened tinnitus of right ear today Cardiovascular: denied Respiratory: denied Gastrointestinal: denied Neurological: denied Psychiatric: denies symptoms other than stated above Total of at least 10 systems reviewed, pertinent positives as above and in HPI. Sleep Information Total Hours of Sleep: 5.5 Sleep Comments: pt on q-15 minute checks Meal Information Percent Meal Consumed - Breakfast: 80 Percent Meal Consumed - Lunch: 100 Percent Meal Consumed - Dinner: 100 Subjective Subjective Patient was seen & assessed and interval progress reviewed with treatment team. Staff reports the patient is scheduled for a meeting with his girlfriend of 34 years tomorrow afternoon. Patient has requested for possible discharge after the meeting if all goes well. He is continued to demonstrate improvement in condition, though does demonstrate poor boundaries at times. Overall his behavior has become more appropriate. Patient was seen today to assess progress since admission. The patient states that he feels "great." The patient does verbalize a "funny feeling in my head, but that is not abnormal. It is not related to the medications." The patient states that his tinnitus is mildly worsened today, predominantly in his right ear. Again, patient states that this is not abnormal for him from time to time. The patient does share with this provider, "it is now obvious to me that I was in a really bad mental state. Going into shopping stores and leaving, screaming up with this guys. That is the behavior of a maniac." Patient does state that he has no intention to return to this kind of behavior. We discussed recommendation to continue with his current medication regimen, and patient admits to willingness to comply with aftercare. Patient is agreeable to a meeting with his "", long-term girlfriend, tomorrow afternoon. He states that he would feel comfortable with being discharged tomorrow, as he is not anticipating the meeting to go poorly. The patient states "at this point I really not sure what a few extra days is go ing to do." The patient denies suicidal and homicidal ideation. He denies acute needs at this time. Physical Exam Psychiatric Orientation: alert, oriented x 3 and cooperative Apperance: appropriately dressed, appropriately groomed and appeared stated age Eye Contact: good eye contact Motor Behavior: steady gait and station and no abnormal motor movements Speech: normal rate/rhythm/volume of speech (hyperverbal, but less pressured) Affect: euthymic affect and mood congruent with affect Mood: no depressed mood ("I feel great") Thought Process: goal directed thought process, linear/logical thought process and clear/coherent thought process Thought Content: reality based without delusions (no statements of grandiosity verbalized); no hopelessness Suicidal Thoughts: denies suicidal thoughts, denies suicidal plan and denies suicidal intent Homicidal Thoughts: denies homicidal thoughts Hallucinations: no auditory hallucinations and no visual hallucinations Cognition: attention grossly intact and language grossly intact Insight: + limited insight (longstanding, but can recognize pre-admission behavior was inappropriate) Judgement: + fair judgement Vital Signs (Past 24 Hours) Last Vital Signs Temp 36.7 C 01/12/19 06:47 Pulse 71 01/12/19 06:47 Resp 18 01/12/19 06:47 BP 106/56 L 01/12/19 06:48 Pulse Ox 99 01/08/19 19:03 Results & Data Current Inpatient Medications Current Inpatient Medications: Current Inpatient Medications Acetaminophen (Tylenol) 650 mg PO Q4H PRN PRN Reason: Headache or Minor Fever Stop: 02/02/19 16:55 Al Hydrox/Mg Hydrox/Simethicone (Maalox) 30 ml PO Q4H PRN PRN Reason: GI Upset Stop: 02/02/19 16:55 Bismuth Subsalicylate (Kaopectate) 15 ml PO PRN PRN PRN Reason: Loose Stool Stop: 02/02/19 16:55 Calcium Polycarbophil (Fibercon) 625 mg PO QPM TAMICA Stop: 02/09/19 20:59 Last Admin: 01/11/19 21:57 Dose: 625 mg Documented by: Divalproex Sodium (Depakote Delay Release) 500 mg PO QAM TAMICA Stop: 02/08/19 08:59 Last Admin: 01/12/19 08:36 Dose: 500 mg Documented by: Divalproex Sodium (Depakote Delay Release) 1,000 mg PO HS TAMICA Stop: 02/07/19 21:59 Last Admin: 01/11/19 21:57 Dose: 1,000 mg Documented by: Docusate Sodium (Colace) 100 mg PO BID TAMICA Stop: 02/09/19 20:59 Last Admin: 01/12/19 08:36 Dose: 100 mg Documented by: Folic Acid (Folvite) 1 mg PO QAM TAMICA Stop: 02/03/19 08:59 Last Admin: 01/12/19 08:36 Dose: 1 mg Documented by: Haloperidol (Haldol) 5 mg PO Q4H PRN PRN Reason: tammie/psychosis Stop: 02/05/19 10:04 Hydroxyzine HCl (Vistaril) 25 mg PO Q4H PRN PRN Reason: Anxiety Stop: 02/02/19 16:55 Hydroxyzine HCl (Vistaril) 50 mg PO HSZ PRN PRN Reason: Insomnia Stop: 02/02/19 16:55 Last Admin: 01/06/19 00:05 Dose: 50 mg Documented by: Magnesium Hydroxide (Milk Of Magnesia) 30 ml PO DAILY PRN PRN Reason: Constipation Stop: 02/02/19 16:55 Last Admin: 01/08/19 13:40 Dose: 30 ml Documented by: Miscellaneous (Remove Nicoderm Patch) 1 ea N/A HS [facility] Stop: 02/03/19 00:00 Last Admin: 01/11/19 21:58 Dose: Not Given Documented by: Nicotine ([facility]oderm Cq) [facility] Stop: 02/02/19 18:14 Last Admin: 01/12/19 08:41 Dose: Not Given Documented by: Nicotine Polacrilex (Nicorette 2mg) 1 piece MT PRN PRN PRN Reason: Nicotine Withdrawal Stop: 02/02/19 18:13 Risperidone (Risperdal M) 2 mg PO [facility] Stop: 02/05/19 21:59 Last Admin: 01/11/19 21:58 Dose: 2 mg Documented by: Risperidone (Risperdal M) 1 mg PO BID@0900,1400 [facility] Stop: 02/05/19 10:14 Last Admin: 01/12/19 08:36 Dose: 1 mg Documented by: Sodium Chloride (Dawes Nasal) 1 - 2 sprays NA PRN PRN PRN Reason: Nasal Dryness/Congestion Stop: 02/02/19 16:55 Thiamine HCl (Vitamin B-1) 100 mg PO QAM [facility] Stop: 02/03/19 08:59 Last Admin: 01/12/19 08:36 Dose: 100 mg Documented by: Mental Health & Subst Abuse Tx Therapist Name of Therapist: [facility] Appointment Comment: [phone] [place] [address] Lead Database Administrator Name of Lead Database Administrator: Hadley Lopes [facility] Suicide Prevention Worker Phone Number for Lead Database Administrator: [phone] Case Management Appointment Comment: [address] [place] [address] Post Discharge Appointments Primary Care Physician Name Of Family Doctor: [facility] Provider Appointment Comment: [phone] [place] [address] Other #1: Name of Aftercare Appointment: PIA for transportation to [facility] for appts Phone Number of Aftercare Appointment: [phone] #2 Aftercare Appointment Comment: call to schedule transportation to appts Contact Information Discharge Discharge Address: [address] [place] [address] (1) Bipolar disorder Active/Remission status: currently active Current bipolar episode type: manic Current episode severity: severe Psychotic features: without psychotic featu res Qualified Code(s): F31.13 - Bipolar disorder, current episode manic without psychotic features, severe
[2019-01-12] MEDS: CALCIUM POLYCARBOPHIL 625MG TAB PO SCH (20:58)
[2019-01-13 06:53] VITALS: TEMP 97.7
[2019-01-13] MEDS: DOCUSATE SODIUM 100 MG CAP PO SCH (07:36)
[2019-01-13] MEDS: THIAMINE HCL 100 MG TAB PO SCH (07:37)
[2019-01-13] MEDS: RISPERIDONE ODT 1MG PO SCH ×2 (07:37→13:47)
[2019-01-13] MEDS: NICOTINE 14 MG/24 HR PATCH TD SCH (07:37)
[2019-01-13] MEDS: DIVALPROEX DELAY RELEASE 500 MG TAB PO SCH (07:37)
[2019-01-13] MEDS: FOLIC ACID 1 MG TAB PO SCH (07:37)
[2019-01-13 08:28] VITALS: BP 107/71; PULSE 69
--- NOTE | 2019-01-13 09:29 | Discharge Summary ---
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 but patient remains hyperverbal, disinhibited, and irritable at times - Continue to solidify aftercare arrangements - Contact to be made with police regarding patient's involuntary commitment, threats to others, and current possession of firearms - family did not see the concern in the situation and is not willing to remove the firearms from the home 01/09 - Continue medication regimen as above, patient appearing more appropriate in regard to behavior and response to redirection; however, did have an outburst yesterday - Continue to solidify aftercare arrangements 01/10 - trend positive. progressively less labile. hypomanic appearing this am. continue depakote and risperdal as scheduled 01/11/2019 -Again appearing more calm, less grandiose, but still hyperverbal and disinhibited. A little early yet for a Depakote level however patient informed will likely be checked in the next few days. -Illness education provided. Reviewed importance of long-term maintenance mood stabilization and reviewed effectiveness of cognitive behavioral therapy additionally. Patient expressed willingness to again engage in therapy as an outpatient. 01/12 - Continues to appear more calm, but continues to be hyperverbal - reports desire to continue medication compliance - Depakote level ordered for tomorrow morning - Family meeting with girlfriend of 34 years tomorrow afternoon, consider discharge after meeting if appropriate 01/13 -Prescriptions issued for risperidone 1 mg twice daily and 2 mg at bedtime and Depakote 500 mg every morning and 1000 mg at bedtime. -Family meeting with significant other held just prior to discharge. -Outpatient psychiatric care and therapy arranged at the [facility]. 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 01/06 - Called [facility] and spoke with Dr. Almanzar regarding patient's hospitalization for severe tammie, and recommendations for abstinence from cannabis/THC. 01/13 -send discharge records to [facility] to coordinate care. (4) Abdominal pain: - appreciate evaluation by ER in due diligence, abdominal CT no change from 09/2018 comparison and no obvious visual findings - asked him to show staff any BM that has blood to assure acute GI consult is not needed - if not any acute symptoms on unit will need to arrange outpatient appt with [facility] and ask for partner's assistance coordinating police involvement to reduce barriers to further evaluation and care - he has intact appetite now and is eating, perhaps Risperdal will stimulate appetite some but this is not the goal of treatment 01/07 -patient eating well, reports resolution of abdominal pain. 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 01/09 - Pt reports constipation, having no BMs since admission - no benefit from MOM, ordered colace 01/10 - change colace to bid, add fiber supp, push fluids, MOM prn 01/11/2019 - + BM continue OBR 01/13 -Abdominal pain has resolved, patient eating well. He requested to schedule his own gastroenterology follow-up at the [facility]. Mental Health & Subst Abuse Tx Therapist Name of Therapist: [facility] Therapy Appointment Comment: [phone] [place] [address] Technical Support Professional Name of Technical Support Professional: Eliecer Hernandez [facility] Suicide Prevention Worker Phone Number for Technical Support Professional: [phone] Case Management Appointment Comment: [phone] [place] [address] Post Discharge Appointments Primary Care Physician Name Of Family Doctor: [facility] Provider Appointment Comment: [phone] [place] [address] Smoking Cessation Counseling Tobacco Cessation Medication Prescribed at Discharge: Not Applicable/Non-Smoker Contact Information Discharge Discharge Address: [address] [place] [address] Discharge Plan Discharge Items Patient Disposition: Home - Self-Care Reason For Visit: PSYCHOSIS Discharge Diagnosis: Bipolar disorder type I, most recent episode manic Cannabis use disorder Activity: Per Instructions section Driving/Machine Use: Per [place] DOT - no driving until you have stabilized and are cleared by your physician Non-emergency contact: Primary Care Provider, Psychiatrist and Therapist Call non-emergency contact if: you have any medication questions and your symptoms worsen Follow-up/Referrals: PCP,NO [Primary Care Provider] - Diet: Regular Addtl Attending Provider Instructions: SPECIAL CARE INSTRUCTIONS: 1. Follow through with your scheduled aftercare appointments. If unable to keep an appointment, please call to reschedule. 2. Take your medication only as prescribed. Medication should not be changed or stopped without the approval of your doctor. In the event of worsening symptoms or concerns about side effects, contact your doctor immediately. 3. Utilize new healthy coping skills, anger management skills, and stress management skills learned during your hospitalization. Journal feelings and process them with a support person. Identify stressors or situations that may result in relapse, deterioration or inappropriate behaviors and develop a plan to deal with those issues. 4. If your coping skills are ineffective and you are in crisis, contact your outpatient providers for direction. If unable to reach your providers, please call the CAN HELP LINE AT or go to the closest Emergency Room. 5. You should not drink alcohol or take illicit or recreational drug. This includes cannabis, as it can destabilize your mood and cause psychosis. 6. You should not drive until you have stabilized on your medications and have been evaluated by your physician. A mandated report was made to Angelo IBARRA due to your reports of erratic and unsafe driving and threats to use your vehicle to harm others, as well as cannabis use. 7. You have been provided with the Mental Health Advance Directives Pamphlet for your review. AFTERCARE APPOINTMENTS: * Please call your insurance company prior to your scheduled appointment to confirm your aftercare providers are covered. Take your insurance information to your appointments. WHO TO CALL AND WHEN: Medical Emergencies: For questions or emergencies related to your hospital stay, please contact the Inpatient Behavioral Health Unit at [phone]. A draftsperson is on-call 08/10 for the Behavioral Health Unit for emergencies At any time you feel your situation is an emergency, you may also call 911 immediately. Your Doctors Instructions noted above were prepared by provider Umm Daniels MD. Pending Studies at Discharge: No Stand-Alone Forms: My [facility], Smoking Cessation, Suicide Prevention Resources Medications and DC Order Prescriptions: New divalproex 500 mg Tablet,Delayed Release (Dr/Ec) 500 mg PO UD Qty: 90 RF: 0 risperidone [Risperdal] 1 mg tablet 1 mg PO BID Qty: 60 RF: 0 risperidone [Risperdal] 2 mg tablet 2 mg PO HS Qty: 30 RF: 0 No Action No Known Home Medications RF: 0 Discharge Orders: Discharge Order (Routine); Ordered 01/13/19 Ordered By: Jane Lantigua Admission Data Admit Date/Time: 01/03/19 16:46 Attending Provider: Umm Daniels Admit Provider: Georgia Lujan Primary Care Provider: PCP,NO Other Interventions: Discharge Summary Assessment (RN) Last Done: 01/13/19 15:28 PSY Interdisciplinary Discharge Planning Last Done: 01/13/19 15:28 DC Date/Time DO NOT enter until pt leaves facility: 01/13/19 16:10 Coding Level of Care Code 86646 D/C day mgmt > 30 min Diagnoses Verbalizes suicidal thoughts R45.851 Bipolar disorder F31.13 Active/Remission status: currently active Current bipolar episode type: manic Current episode severity: severe Psychotic features: without psychotic features Drug abuse F19.10 Abdominal pain R10.9
== END 2019-01-13 16:10 | disposition home or self-care (01) | DRG 885 ==
LOC: ED 10:53 → 3S 16:33